=== PATIENT | female | born 1975 | race Two or more races ===

== ENCOUNTER 2025-03-13 11:38 | Inpatient (IN) | payer MEDICAID, OTHER ==
[~2025-03-13] VITALS: Ht 165.1 cm; Wt 68.0 kg
[2025-03-13] VITALS (8 sets, daily range): BP systolic 85–90; BP diastolic 53–60; TEMP 97.5–97.9; O2SAT 100
[2025-03-13] MEDS ORDERED: LABE100T5 GT (12:29)
[2025-03-13] MEDS ORDERED: DOCU100T2 GT (12:29)
[2025-03-13] MEDS ORDERED: ENAL2.5T17 GT (12:29)
[2025-03-13] MEDS ORDERED: AMIN30LI66 GT (12:29)
[2025-03-13] MEDS ORDERED: ASPI-1169 GT (12:29)
[2025-03-13] MEDS ORDERED: SENN8.6T19 GT (12:29)
[2025-03-13] MEDS ORDERED: INSU100V42 SQ ×2 (12:29)
[2025-03-13] MEDS ORDERED: BISA10SU11 RC (12:29)
[2025-03-13] MEDS ORDERED: DEXT15DR6 EACHEYE (12:29)
[2025-03-13] MEDS ORDERED: ASCO500L2 GT (12:29)
[2025-03-13] MEDS ORDERED: LEVE100S GT (12:29)
[2025-03-13] MEDS ORDERED: ATOR40TA GT (12:29)
[2025-03-13] MEDS ORDERED: ACET160L44 GT (12:29)
[2025-03-13] MEDS ORDERED: ALBU2.5V38 IH (12:29)
[2025-03-13] MEDS ORDERED: MULT-213 GT (12:29)
[2025-03-13] MEDS ORDERED: NA P133E RC (12:29)
[2025-03-13] MEDS ORDERED: CEFE2VIA3 IV (12:29)
[2025-03-13] MEDS ORDERED: ACET160S GT (12:29)
[2025-03-13] MEDS ORDERED: MAGN400O6 GT (12:29)
[2025-03-13] MEDS ORDERED: BROM2.5T19 GT (12:29)
[2025-03-13] MEDS ORDERED: OMEGA-3 FATTY ACIDS GT (12:29)
[2025-03-13] MEDS ORDERED: ONDA4TAB5 GT (12:29)
[2025-03-13] MEDS ORDERED: NUT.237L30 GT (12:29)
[2025-03-13] MEDS ORDERED: INSU100V7 SQ (12:29)
[2025-03-13] MEDS ORDERED: CHLO473M5 MM (12:29)
[2025-03-13] MEDS ORDERED: LISI-768 GT (12:29)
[2025-03-13 12:33] LABS: BASOPHILS % (AUTO) 0.2 % (0.0-2.0); EOSINOPHILS # (AUTO) 0.1 K/uL (0.0-0.7); EOSINOPHILS % (AUTO) 1.3 % (0.0-6.0); HEMATOCRIT 21 % (33-45); LYMPHOCYTES # (AUTO) 1.7 K/uL (0.8-4.8); LYMPHOCYTES % (AUTO) 15.8 % (20.0-44.0); MEAN CORPUSCULAR HEMOGLOBIN 27 PG (26.0-33.0); MEAN CORPUSCULAR HGB CONC 33 g/dl (31.0-36.0); MEAN CORPUSCULAR VOLUME 82 fL (82-100); MONOCYTES # (AUTO) 0.6 K/uL (0.1-1.30); MONOCYTES % (AUTO) 5.9 % (2.0-12.0); NEUTROPHILS # (AUTO) 8.1 K/uL (1.8-8.9); NEUTROPHILS % (AUTO) 76.8 % (43.0-81.0); PLATELET COUNT (AUTO) 411 K/uL (150-450); RED BLOOD CELL COUNT(AUTO) 2.56 MIL/uL (4.0-5.2); RED CELL DISTRIBUTION WIDTH 18.6 % (11.5-15.0); WHITE BLOOD COUNT (AUTO) 10.6 K/uL (4.3-11.0)
[2025-03-13 12:37] LABS: CALCIUM, SERUM 9.9 mg/dL (8.5-10.1); CREATININE 1.4 mg/dL (0.6-1.3); POTASSIUM 3.9 mmol/L (3.5-5.1)
[2025-03-13 12:39] LABS: HEMOGLOBIN 6.9 g/dL (11.5-14.8)
[2025-03-13 12:43] LABS: INR 1.03 (0.91-1.10); PARTIAL THROMBOPLASTIN TIME 30.6 SEC (24.3-34.3); PROTHROMBIN TIME 10.9 SECS (9.2-11.1)
[2025-03-13 12:56] LABS: BILIRUBIN,DIRECT 0.2 mg/dL (0.0-0.2); BILIRUBIN,TOTAL 0.5 mg/dL (0.2-1.0); TOTAL PROTEIN, SERUM 6.8 g/dL (6.4-8.2)
[2025-03-13] MEDS: CEFEPIME 1 GM in IV D5W 50 ML IV ONE (13:00)
[2025-03-13] MEDS: IV NS 0.9% 1,000 ML BAG IV ONE (13:00)
[2025-03-13] MEDS ORDERED: ONDANSETRON HCL/PF 4 MG/2 ML VIAL IVP PRN (13:30)
[2025-03-13] MEDS ORDERED: MORPHINE SULFATE INJ 2 MG/ML DISP.SYRIN IV PRN (13:30)
[2025-03-13] MEDS ORDERED: DEXTROSE 50%-WATER 50 ML DISP.SYRIN IV PRN (13:30)
[2025-03-13] MEDS ORDERED: Z GUARD REMEDY 4 OZ OINT TP PRN (13:30)
[2025-03-13 14:04] LABS: APPEARANCE,URINE CLEAR (CLEAR); BILIRUBIN,URINE NEGATIVE (NEGATIVE); BLOOD, URINE 1+ Ery/uL (NEGATIVE); COLOR,URINE YELLOW (YELLOW); KETONES,URINE NEGATIVE (NEGATIVE); LEUKOCYTE ESTERASE ,URINE 1+ (NEGATIVE); NITRITE, URINE NEGATIVE (NEGATIVE); PROTEIN,URINE 2+ mg/dl (NEGATIVE); UGLUCOSE NEGATIVE (NEGATIVE); UROBILINOGEN,URINE 0.2 EU/dL (0.2)
[2025-03-13 14:53] LABS: LACTIC ACID 2.4 mmol/L (0.4-2.0)
[2025-03-13] MEDS: IV NS 0.9% 1,000 ML IV SCH (16:24)
[2025-03-13] MEDS: BROMOCRIPTINE MESYLATE (2.5MG) 2.5 MG TABLET GT SCH (17:25)
[2025-03-13] MEDS: DOCUSATE SODIUM LIQ 100 MG/10 ML UDC PO SCH (17:25)
[2025-03-13] MEDS: CHLORHEXIDINE GLUCONATE 15 ML UDC MM SCH (17:25)
[2025-03-13] MEDS: INSULIN REGULAR, HUMAN 100 UNIT/ML 3 ML VIAL SQ PRN (17:45)
[2025-03-13] MEDS: BLOOD SUGAR DIAGNOSTIC 1 EACH STRIP IN SCH (17:45)
[2025-03-13 19:01] LABS: ADD URINE CULTURE YES; BACTERIA,URINE Moderate /HPF (None Seen); CALCIUM OXALATE CRYSTALS,UR Few /HPF (None Seen); SQUAMOUS EPITHELIAL CELL,UR Few /HPF (None Seen); YEAST,URINE Many /HPF (None Seen)
[2025-03-13] MEDS ORDERED: CEFEPIME 2 GM VIAL IV SCH (21:00)
[2025-03-13 21:04] LABS: ANISOCYTOSIS 1+; BAND % (MANUAL) 0 % (0.0-5.0); BASOPHILS % (MANUAL) 0 % (0.0-2.0); EOSINOPHILS % (MANUAL) 0 % (0-4); LYMPHOCYTES % (MANUAL) 15 % (16-48); MONOCYTES % (MANUAL) 5 % (0-11.0); NEUTROPHILS % (MANUAL) 80 (42-76); PLATELET ESTIMATE ADEQUATE
[2025-03-13] MEDS: GLUCERNA 1.2 1,000 ML BOTTLE NG PRN (21:04)
[2025-03-13] MEDS: LEVETIRACETAM SOL (5 ML) 100 MG/ML UDC GT SCH (21:20)
[2025-03-13] MEDS: ASPIRIN 81 MG TAB.CHEW GT SCH (21:55)
[2025-03-13] MEDS: ATORVASTATIN 40 MG TABLET GT SCH (21:56)
[2025-03-13] MEDS: INSULIN GLARGINE, 100 UNIT/ML CARTRIDGE SQ SCH (23:23)
[2025-03-14] VITALS: BP_SYST 100; BP_SYST 89; BP_DIAS 60; BP_DIAS 73; TEMP 97.5; TEMP 99; O2SAT 100
[2025-03-14] MEDS: CEFEPIME 2 GM in IV D5W 100 ML IV SCH (01:12)
[2025-03-14 04:00] VITALS: BP 130/90; TEMP 100.2; O2SAT 99
[2025-03-14] MEDS: ACETAMINOPHEN 325 MG TABLET PO PRN (04:08)
[2025-03-14 08:00] VITALS: BP 102/67; TEMP 98.4; O2SAT 100
[2025-03-14] MEDS: POLYETHYLENE GLYCOL 3350 17 GM POWD.PACK PO SCH (08:35)
[2025-03-14] MEDS: PROSOURCE / PROSTAT (PYXIS) 30 ML UDC GT SCH (08:46)
[2025-03-14] MEDS: POLYVINYL ALCOHOL 15 ML BOTTLE EACHEYE SCH (08:46)
[2025-03-14 09:02] LABS: BASOPHILS % (AUTO) 0.2 % (0.0-2.0); EOSINOPHILS # (AUTO) 0.2 K/uL (0.0-0.7); EOSINOPHILS % (AUTO) 1.1 % (0.0-6.0); HEMATOCRIT 24 % (33-45); HEMOGLOBIN 7.8 g/dL (11.5-14.8); LYMPHOCYTES # (AUTO) 1.6 K/uL (0.8-4.8); LYMPHOCYTES % (AUTO) 9.6 % (20.0-44.0); MEAN CORPUSCULAR HEMOGLOBIN 27 PG (26.0-33.0); MEAN CORPUSCULAR HGB CONC 32 g/dl (31.0-36.0); MEAN CORPUSCULAR VOLUME 85 fL (82-100); NEUTROPHILS % (AUTO) 83.1 % (43.0-81.0); PLATELET COUNT (AUTO) 383 K/uL (150-450); RED BLOOD CELL COUNT(AUTO) 2.87 MIL/uL (4.0-5.2); RED CELL DISTRIBUTION WIDTH 17.8 % (11.5-15.0); WHITE BLOOD COUNT (AUTO) 16.9 K/uL (4.3-11.0)
[2025-03-14 09:19] LABS: BILIRUBIN,TOTAL 0.3 mg/dL (0.2-1.0); CALCIUM, SERUM 9.1 mg/dL (8.5-10.1); CREATININE 1.6 mg/dL (0.6-1.3); MAGNESIUM 2.6 mg/dL (1.8-2.4); PHOSPHORUS 4.6 mg/dL (2.5-4.9); POTASSIUM 4.1 mmol/L (3.5-5.1); TOTAL PROTEIN, SERUM 6.2 g/dL (6.4-8.2)
[2025-03-14] MEDS: DAKINS QUARTER STRENGTH (0.125%) 480 ML BOTTLE TOP SCH (10:17)
[2025-03-14 12:00] VITALS: BP 90/61; TEMP 97.5; O2SAT 100
[2025-03-14] MEDS ORDERED: UREA 10% -AHA 4% CREAM 57 GM TUBE TP SCH (12:00)
[2025-03-14] MEDS: IV NS 0.9% 1,000 ML IV ONE (15:20)
[2025-03-14] MEDS: GLUCERNA 1.2 1,000 ML BOTTLE GT PRN (15:20)
[2025-03-14] MEDS ORDERED: GLUCERNA 1.2 1,000 ML BOTTLE NG PRN (15:30)
[2025-03-14 16:00] VITALS: BP 88/57; TEMP 98.2; O2SAT 100
[2025-03-14 16:02] LABS: PREGNANCY TEST URINE QUAL NEGATIVE (NEGATIVE)
[2025-03-14 16:44] LABS: CREATININE, URINE < 13.0 MG/DL (30.0-125.0); URINE SODIUM, RANDOM 47 mmol/l (40-220); URINE TOTAL PROTEIN 100.5 mg/dL (0-11.9)
[2025-03-14 20:00] VITALS: BP 107/68; TEMP 97.9; O2SAT 100
[2025-03-14 20:57] LABS: HEMOGLOBIN 7.6 g/dL (11.5-14.8)
[2025-03-15] VITALS: BP 99/62; TEMP 99; O2SAT 100
[2025-03-15 04:00] VITALS: BP 100/62; TEMP 98.2; O2SAT 100
[2025-03-15 07:16] LABS: BASOPHILS % (AUTO) 0.2 % (0.0-2.0); EOSINOPHILS # (AUTO) 0.2 K/uL (0.0-0.7); EOSINOPHILS % (AUTO) 1.2 % (0.0-6.0); HEMATOCRIT 23 % (33-45); HEMOGLOBIN 7.5 g/dL (11.5-14.8); LYMPHOCYTES # (AUTO) 1.6 K/uL (0.8-4.8); LYMPHOCYTES % (AUTO) 9.5 % (20.0-44.0); MEAN CORPUSCULAR HEMOGLOBIN 27 PG (26.0-33.0); MEAN CORPUSCULAR HGB CONC 32 g/dl (31.0-36.0); MEAN CORPUSCULAR VOLUME 85 fL (82-100); MONOCYTES % (AUTO) 5.8 % (2.0-12.0); NEUTROPHILS # (AUTO) 14.1 K/uL (1.8-8.9); NEUTROPHILS % (AUTO) 83.3 % (43.0-81.0); PLATELET COUNT (AUTO) 433 K/uL (150-450); RED BLOOD CELL COUNT(AUTO) 2.73 MIL/uL (4.0-5.2); RED CELL DISTRIBUTION WIDTH 18.3 % (11.5-15.0); WHITE BLOOD COUNT (AUTO) 16.9 K/uL (4.3-11.0)
[2025-03-15 07:46] LABS: BILIRUBIN,TOTAL 0.3 mg/dL (0.2-1.0); CALCIUM, SERUM 9.4 mg/dL (8.5-10.1); CREATININE 1.7 mg/dL (0.6-1.3); MAGNESIUM 2.7 mg/dL (1.8-2.4); PHOSPHORUS 4.5 mg/dL (2.5-4.9); POTASSIUM 4.1 mmol/L (3.5-5.1); TOTAL PROTEIN, SERUM 6.4 g/dL (6.4-8.2)
[2025-03-15 08:05] VITALS: BP 98/63; TEMP 99; O2SAT 99
[2025-03-15] MEDS: PANTOPRAZOLE 40 MG VIAL IV SCH (08:46)
[2025-03-15] MEDS: MEROPENEM 1 G in IV NS 0.9% 100 ML IV SCH (08:46)
[2025-03-15] MEDS: ARGININE/GLUTAMINE/CALCIUM BMB 1 EACH POWD.PACK GT SCH (08:47)
[2025-03-15 11:49] LABS: EOSINOPHILS % (MANUAL) 1 % (0-4); LYMPHOCYTES % (MANUAL) 21 % (16-48); MONOCYTES % (MANUAL) 3 % (0-11.0); NEUTROPHILS % (MANUAL) 75 (42-76); PLATELET ESTIMATE ADEQUATE
[2025-03-15 11:52] LABS: ANISOCYTOSIS 1+
[2025-03-15 12:05] VITALS: BP 94/59; TEMP 98.2; O2SAT 99
[2025-03-15] MEDS: GLUCERNA 1.2 1,000 ML BOTTLE GT SCH (13:50)
[2025-03-15 16:05] VITALS: BP 98/60; TEMP 97.9; O2SAT 99
[2025-03-15] MEDS: MIDODRINE HCL (5MG) 5 MG TABLET PO SCH (17:15)
[2025-03-15 20:00] VITALS: BP 110/68; TEMP 97.5; O2SAT 99
[2025-03-16] VITALS: BP 109/75; TEMP 97.9; O2SAT 99
[2025-03-16 04:00] VITALS: BP 112/76; TEMP 97.7; O2SAT 100
[2025-03-16 07:26] LABS: BASOPHILS % (AUTO) 0.3 % (0.0-2.0); EOSINOPHILS # (AUTO) 0.2 K/uL (0.0-0.7); EOSINOPHILS % (AUTO) 1.2 % (0.0-6.0); HEMATOCRIT 25 % (33-45); HEMOGLOBIN 7.8 g/dL (11.5-14.8); LYMPHOCYTES # (AUTO) 1.9 K/uL (0.8-4.8); LYMPHOCYTES % (AUTO) 10.2 % (20.0-44.0); MEAN CORPUSCULAR HEMOGLOBIN 27 PG (26.0-33.0); MEAN CORPUSCULAR HGB CONC 31 g/dl (31.0-36.0); MEAN CORPUSCULAR VOLUME 85 fL (82-100); MONOCYTES # (AUTO) 1.1 K/uL (0.1-1.30); MONOCYTES % (AUTO) 5.9 % (2.0-12.0); NEUTROPHILS # (AUTO) 15.3 K/uL (1.8-8.9); NEUTROPHILS % (AUTO) 82.4 % (43.0-81.0); PLATELET COUNT (AUTO) 465 K/uL (150-450); RED BLOOD CELL COUNT(AUTO) 2.92 MIL/uL (4.0-5.2); RED CELL DISTRIBUTION WIDTH 18.6 % (11.5-15.0); WHITE BLOOD COUNT (AUTO) 18.6 K/uL (4.3-11.0)
[2025-03-16 07:51] LABS: BILIRUBIN,TOTAL 0.2 mg/dL (0.2-1.0); CALCIUM, SERUM 9.6 mg/dL (8.5-10.1); CREATININE 1.8 mg/dL (0.6-1.3); POTASSIUM 3.7 mmol/L (3.5-5.1); TOTAL PROTEIN, SERUM 6.3 g/dL (6.4-8.2)
[2025-03-16 08:00] VITALS: BP 107/76; TEMP 98.8; O2SAT 100
[2025-03-16 08:31] LABS: ALBUMIN 0.9 g/dL (3.4-5.0)
[2025-03-16 09:44] LABS: ANISOCYTOSIS 1+; EOSINOPHILS % (MANUAL) 2 % (0-4); LYMPHOCYTES % (MANUAL) 9 % (16-48); MONOCYTES % (MANUAL) 3 % (0-11.0); NEUTROPHILS % (MANUAL) 86 (42-76); OVALOCYTES 1+; PLATELET ESTIMATE INCREASED
[2025-03-16 12:00] VITALS: BP 129/73; TEMP 97.9; O2SAT 100
[2025-03-16] MEDS: FLUCONAZOLE IN NS 100 MG in PREMIX 1 EA IV SCH (12:07)
[2025-03-16 16:00] VITALS: BP 113/80; TEMP 97.7; O2SAT 100
[2025-03-16 20:00] VITALS: BP 124/73; TEMP 98.8; O2SAT 100
[2025-03-16 21:50] LABS: APPEARANCE,URINE CLEAR (CLEAR); BILIRUBIN,URINE NEGATIVE (NEGATIVE); BLOOD, URINE TRACE-INTA Ery/uL (NEGATIVE); COLOR,URINE YELLOW (YELLOW); KETONES,URINE NEGATIVE (NEGATIVE); LEUKOCYTE ESTERASE ,URINE NEGATIVE (NEGATIVE); NITRITE, URINE NEGATIVE (NEGATIVE); PROTEIN,URINE 2+ mg/dl (NEGATIVE); UGLUCOSE NEGATIVE (NEGATIVE); UROBILINOGEN,URINE 0.2 EU/dL (0.2)
[2025-03-16 22:24] LABS: ADD URINE CULTURE YES; BACTERIA,URINE Rare /HPF (None Seen); MUCUS,URINE Few /LPF (None Seen); YEAST,URINE Many /HPF (None Seen)
[2025-03-16 22:52] LABS: EOSINOPHIL,URINE None Seen
[2025-03-17] VITALS: BP 127/74; TEMP 98.8; O2SAT 100
[2025-03-17 04:00] VITALS: BP 145/88; TEMP 98.4; O2SAT 99
[2025-03-17 07:06] LABS: BASOPHILS # (AUTO) 0.1 K/uL (0.0-0.2); BASOPHILS % (AUTO) 0.3 % (0.0-2.0); EOSINOPHILS # (AUTO) 0.2 K/uL (0.0-0.7); EOSINOPHILS % (AUTO) 1.3 % (0.0-6.0); HEMATOCRIT 25 % (33-45); HEMOGLOBIN 7.9 g/dL (11.5-14.8); LYMPHOCYTES # (AUTO) 2.4 K/uL (0.8-4.8); LYMPHOCYTES % (AUTO) 14.4 % (20.0-44.0); MEAN CORPUSCULAR HEMOGLOBIN 27 PG (26.0-33.0); MEAN CORPUSCULAR HGB CONC 32 g/dl (31.0-36.0); MEAN CORPUSCULAR VOLUME 85 fL (82-100); MONOCYTES # (AUTO) 1.2 K/uL (0.1-1.30); MONOCYTES % (AUTO) 7.2 % (2.0-12.0); NEUTROPHILS # (AUTO) 12.8 K/uL (1.8-8.9); NEUTROPHILS % (AUTO) 76.8 % (43.0-81.0); PLATELET COUNT (AUTO) 579 K/uL (150-450); RED BLOOD CELL COUNT(AUTO) 2.92 MIL/uL (4.0-5.2); RED CELL DISTRIBUTION WIDTH 18.8 % (11.5-15.0); WHITE BLOOD COUNT (AUTO) 16.7 K/uL (4.3-11.0)
[2025-03-17 07:22] LABS: BILIRUBIN,TOTAL 0.2 mg/dL (0.2-1.0); CALCIUM, SERUM 9.7 mg/dL (8.5-10.1); CREATININE 1.7 mg/dL (0.6-1.3); POTASSIUM 3.7 mmol/L (3.5-5.1); TOTAL PROTEIN, SERUM 6.6 g/dL (6.4-8.2)
[2025-03-17 08:00] VITALS: BP 106/62; TEMP 99.1; O2SAT 99
[2025-03-17 08:10] LABS: PTH, INTACT 10 pg/mL (15-65)
[2025-03-17] MEDS: PANTOPRAZOLE 40 MG/PACK PACK GT SCH (08:44)
[2025-03-17] MEDS: IV 1/2NS 1000 ML 1,000 ML IV ONE ×2 (10:49→11:12)
[2025-03-17 12:00] VITALS: BP 109/58; TEMP 99; O2SAT 99
[2025-03-17 13:07] LABS: EOSINOPHILS % (MANUAL) 2 % (0-4); LYMPHOCYTES % (MANUAL) 13 % (16-48); MONOCYTES % (MANUAL) 8 % (0-11.0); NEUTROPHILS % (MANUAL) 77 (42-76); PLATELET ESTIMATE INCREASED
[2025-03-17 16:00] VITALS: BP 123/66; TEMP 99.9; O2SAT 99
[2025-03-17 20:00] VITALS: BP 117/70; TEMP 98.2; O2SAT 100
[2025-03-18] VITALS: BP 131/76; TEMP 98; O2SAT 100
[2025-03-18 04:00] VITALS: BP 116/78; TEMP 97.9; O2SAT 100
[2025-03-18 06:42] LABS: OCCULT BLOOD STOOL NEGATIVE (NEGATIVE)
[2025-03-18 08:00] VITALS: BP 132/77; TEMP 97.9; O2SAT 100
[2025-03-18 08:19] LABS: BASOPHILS % (AUTO) 0.3 % (0.0-2.0); EOSINOPHILS # (AUTO) 0.2 K/uL (0.0-0.7); EOSINOPHILS % (AUTO) 1.2 % (0.0-6.0); HEMATOCRIT 26 % (33-45); HEMOGLOBIN 8.1 g/dL (11.5-14.8); LYMPHOCYTES # (AUTO) 2.5 K/uL (0.8-4.8); LYMPHOCYTES % (AUTO) 17.7 % (20.0-44.0); MEAN CORPUSCULAR HEMOGLOBIN 27 PG (26.0-33.0); MEAN CORPUSCULAR HGB CONC 31 g/dl (31.0-36.0); MEAN CORPUSCULAR VOLUME 85 fL (82-100); MONOCYTES % (AUTO) 7.4 % (2.0-12.0); NEUTROPHILS # (AUTO) 10.3 K/uL (1.8-8.9); NEUTROPHILS % (AUTO) 73.4 % (43.0-81.0); PLATELET COUNT (AUTO) 595 K/uL (150-450); RED BLOOD CELL COUNT(AUTO) 3.01 MIL/uL (4.0-5.2); RED CELL DISTRIBUTION WIDTH 18.7 % (11.5-15.0); WHITE BLOOD COUNT (AUTO) 14.1 K/uL (4.3-11.0)
[2025-03-18 08:31] LABS: BILIRUBIN,TOTAL 0.2 mg/dL (0.2-1.0); CALCIUM, SERUM 9.6 mg/dL (8.5-10.1); CREATININE 1.7 mg/dL (0.6-1.3); POTASSIUM 3.3 mmol/L (3.5-5.1); TOTAL PROTEIN, SERUM 6.6 g/dL (6.4-8.2)
[2025-03-18] MEDS ORDERED: POTASSIUM CHLORIDE 20 MEQ POWDER PACKET GT SCH (11:00)
[2025-03-18] MEDS ORDERED: POTASSIUM CL. PREMIX PERIPHER. 50 ML IV SCH (11:30)
[2025-03-18 12:00] VITALS: BP 133/78; TEMP 98.8; O2SAT 100
[2025-03-18] MEDS: POTASSIUM CHLORIDE 20 MEQ POWDER PACKET GT ONE (12:59)
[2025-03-18 15:35] LABS: EOSINOPHILS % (MANUAL) 2 % (0-4); LYMPHOCYTES % (MANUAL) 28 % (16-48); MONOCYTES % (MANUAL) 5 % (0-11.0); MYELOCYTES % 2 % (0-0); NEUTROPHILS % (MANUAL) 63 (42-76); PLATELET ESTIMATE INCREASED
[2025-03-18 15:36] LABS: ANISOCYTOSIS 1+
[2025-03-18 16:00] VITALS: BP 102/65; TEMP 98; O2SAT 98
[2025-03-18 20:00] VITALS: BP 119/73; TEMP 99; O2SAT 100
[2025-03-19] VITALS: BP 106/62; TEMP 98.6; O2SAT 100
[2025-03-19 04:00] VITALS: BP 126/74; TEMP 98.2; O2SAT 98
[2025-03-19 08:00] VITALS: BP 135/79; TEMP 98.4; O2SAT 100
[2025-03-19 08:13] LABS: BILIRUBIN,TOTAL 0.2 mg/dL (0.2-1.0); CALCIUM, SERUM 9.4 mg/dL (8.5-10.1); CREATININE 1.6 mg/dL (0.6-1.3); MAGNESIUM 2.4 mg/dL (1.8-2.4); PHOSPHORUS 4.4 mg/dL (2.5-4.9); POTASSIUM 4.5 mmol/L (3.5-5.1); TOTAL PROTEIN, SERUM 6.8 g/dL (6.4-8.2)
[2025-03-19 08:16] LABS: BASOPHILS # (AUTO) 0.1 K/uL (0.0-0.2); BASOPHILS % (AUTO) 0.4 % (0.0-2.0); EOSINOPHILS # (AUTO) 0.1 K/uL (0.0-0.7); EOSINOPHILS % (AUTO) 0.9 % (0.0-6.0); HEMATOCRIT 25 % (33-45); HEMOGLOBIN 8.1 g/dL (11.5-14.8); LYMPHOCYTES # (AUTO) 2.3 K/uL (0.8-4.8); LYMPHOCYTES % (AUTO) 18.1 % (20.0-44.0); MEAN CORPUSCULAR HEMOGLOBIN 31 PG (26.0-33.0); MEAN CORPUSCULAR HGB CONC 32 g/dl (31.0-36.0); MEAN CORPUSCULAR VOLUME 96 fL (82-100); MONOCYTES # (AUTO) 0.9 K/uL (0.1-1.30); MONOCYTES % (AUTO) 6.9 % (2.0-12.0); NEUTROPHILS # (AUTO) 9.4 K/uL (1.8-8.9); NEUTROPHILS % (AUTO) 73.7 % (43.0-81.0); PLATELET COUNT (AUTO) 624 K/uL (150-450); RED BLOOD CELL COUNT(AUTO) 2.63 MIL/uL (4.0-5.2); RED CELL DISTRIBUTION WIDTH 19.5 % (11.5-15.0); WHITE BLOOD COUNT (AUTO) 12.8 K/uL (4.3-11.0)
[2025-03-19 08:57] LABS: ALBUMIN 1.2 g/dL (3.4-5.0)
[2025-03-19 12:00] VITALS: BP 122/73; TEMP 101.1; O2SAT 100
[2025-03-19 16:23] VITALS: BP 129/80; TEMP 98.8; O2SAT 100
[2025-03-19 20:00] VITALS: BP 137/80; TEMP 99.5; O2SAT 100
[2025-03-20] VITALS: BP 141/78; TEMP 98.5; O2SAT 100
[2025-03-20 04:00] VITALS: BP 140/75; TEMP 98.8; O2SAT 99
[2025-03-20 08:00] VITALS: BP 139/80; TEMP 98.3; O2SAT 99
[2025-03-20 10:10] LABS: BASOPHILS # (AUTO) 0.1 K/uL (0.0-0.2); BASOPHILS % (AUTO) 0.9 % (0.0-2.0); EOSINOPHILS # (AUTO) 0.1 K/uL (0.0-0.7); EOSINOPHILS % (AUTO) 0.7 % (0.0-6.0); HEMATOCRIT 26 % (33-45); HEMOGLOBIN 7.9 g/dL (11.5-14.8); LYMPHOCYTES # (AUTO) 3.2 K/uL (0.8-4.8); LYMPHOCYTES % (AUTO) 22.8 % (20.0-44.0); MEAN CORPUSCULAR HEMOGLOBIN 27 PG (26.0-33.0); MEAN CORPUSCULAR HGB CONC 31 g/dl (31.0-36.0); MEAN CORPUSCULAR VOLUME 86 fL (82-100); MONOCYTES % (AUTO) 7.3 % (2.0-12.0); NEUTROPHILS # (AUTO) 9.5 K/uL (1.8-8.9); NEUTROPHILS % (AUTO) 68.3 % (43.0-81.0); PLATELET COUNT (AUTO) 695 K/uL (150-450); RED BLOOD CELL COUNT(AUTO) 2.98 MIL/uL (4.0-5.2); WHITE BLOOD COUNT (AUTO) 13.9 K/uL (4.3-11.0)
[2025-03-20 10:36] LABS: BILIRUBIN,TOTAL 0.2 mg/dL (0.2-1.0); CALCIUM, SERUM 9.2 mg/dL (8.5-10.1); CREATININE 1.3 mg/dL (0.6-1.3); MAGNESIUM 2.2 mg/dL (1.8-2.4); PHOSPHORUS 4.2 mg/dL (2.5-4.9); POTASSIUM 3.7 mmol/L (3.5-5.1); TOTAL PROTEIN, SERUM 7.1 g/dL (6.4-8.2)
[2025-03-20] MEDS ORDERED: MIDO5TAB4 PO (10:55)
[2025-03-20] MEDS ORDERED: ERTA1VIA4 IJ (10:55)
[2025-03-20 11:14] LABS: ALBUMIN 1.2 g/dL (3.4-5.0)
[2025-03-20 12:00] VITALS: BP 141/84; TEMP 98.2; O2SAT 99
[2025-03-20 13:00] VITALS: BP 141/84
[2025-03-20] MEDS: IV D5W 1,000 ML IV ONE (13:06)
== END 2025-03-20 14:48 | DRG 710 ==
LOC: ER 11:44 → TELE-TD 14:42 → TELE1 03-14 13:30
PROVIDERS: ADMIT Internal Medicine; ATTEND Student in an Organized Health Care Education/Training Program
PROC: 5A1955Z Respiratory Ventilation, Greater than 96 Consecutive Hours (ICD-10-PCS; principal; 2025-03-13)
PROC: 30233N1 Transfusion of Nonautologous Red Blood Cells into Peripheral Vein, Percutaneous Approach (ICD-10-PCS; 2025-03-13)
PROC: 0KBN0ZZ Excision of Right Hip Muscle, Open Approach (ICD-10-PCS; 2025-03-19)
PROC: 0KBP0ZZ Excision of Left Hip Muscle, Open Approach (ICD-10-PCS; 2025-03-19)
DX: A41.51 Sepsis due to Escherichia coli [E. coli] (principal); N17.0 Acute kidney failure with tubular necrosis; G93.49 Other encephalopathy; L89.154 Pressure ulcer of sacral region, stage 4; E43 Unspecified severe protein-calorie malnutrition; B49 Unspecified mycosis; J96.10 Chronic respiratory failure, unspecified whether with hypoxia or hypercapnia; E87.0 Hyperosmolality and hypernatremia; L89.896 Pressure-induced deep tissue damage of other site; A41.59 Other Gram-negative sepsis; Z93.0 Tracheostomy status; Z99.11 Dependence on respirator [ventilator] status; E87.20 Acidosis, unspecified; D63.8 Anemia in other chronic diseases classified elsewhere; D64.9 Anemia, unspecified; E11.22 Type 2 diabetes mellitus with diabetic chronic kidney disease; B96.4 Proteus (mirabilis) (morganii) as the cause of diseases classified elsewhere; R13.10 Dysphagia, unspecified; Z93.1 Gastrostomy status; N39.0 Urinary tract infection, site not specified; N18.9 Chronic kidney disease, unspecified; I12.9 Hypertensive chronic kidney disease with stage 1 through stage 4 chronic kidney disease, or unspecified chronic kidney disease; Z79.4 Long term (current) use of insulin; Z79.82 Long term (current) use of aspirin; Z79.899 Other long term (current) drug therapy; Z79.51 Long term (current) use of inhaled steroids; E11.40 Type 2 diabetes mellitus with diabetic neuropathy, unspecified; G40.909 Epilepsy, unspecified, not intractable, without status epilepticus; L84 Corns and callosities; M89.8X9 Other specified disorders of bone, unspecified site; N31.9 Neuromuscular dysfunction of bladder, unspecified; Z87.820 Personal history of traumatic brain injury; E87.1 Hypo-osmolality and hyponatremia; Z98.890 Other specified postprocedural states; R74.8 Abnormal levels of other serum enzymes; Z16.12 Extended spectrum beta lactamase (ESBL) resistance
CPT/HCPCS: 31720; 36415; 71045-TC; 76770-TC; 80048-TC; 80053-TC; 80076-TC; 81001; 82272-TC; 82550-TC; 82570-TC; 82962-TC; 83605-TC; 83735-TC; 83970; 84100-TC; 84155; 84165; 84300-TC; 84703-TC; 85025-TC; 85027-TC; 85730-TC; 86850-TC; 87040-TC; 87086-TC; 87186-TC; 94002-TC; 94003-TC; 94760-TC; 94762-TC; 94799-TC; 99082-TC; A4216; A4223; A4623; A4629; A6403; G0378; J0692; J1450; J1815; J1953; J2185; J2470; J3490; J7030; J7040; J7050; J7060; J7070; P9016

== ENCOUNTER 2025-04-15 14:00 | Inpatient (IN) | payer OTHER ==
[~2025-04-15] VITALS: Ht 182.9 cm; Wt 52.2 kg
[~2025-04-15 14:00] MED LIST: ACET160L44 GT; ACET160S GT; ALBU2.5V38 IH; AMIN30LI66 GT; ASCO500L2 GT; ASPI-1169 GT; ATOR40TA GT; BISA10SU11 RC; BROM2.5T19 GT; CHLO473M5 MM; DEXT15DR6 EACHEYE; DOCU100T2 GT; ERTA1VIA4 IJ; INSU100V42 SQ; INSU100V7 SQ; LABE100T5 GT; LEVE100S GT; MAGN400O6 GT; MIDO5TAB4 PO; MULT-213 GT; NA P133E RC; NUT.237L30 GT; OMEGA-3 FATTY ACIDS GT; ONDA4TAB5 GT; SENN8.6T19 GT
[2025-04-15] MEDS: VANCOMYCIN 1 GM in IV D5W 250 ML IV ONE (15:00)
[2025-04-15 15:01] LABS: BASOPHILS # (AUTO) 0.1 K/uL (0.0-0.2); BASOPHILS % (AUTO) 0.2 % (0.0-2.0); EOSINOPHILS # (AUTO) 0.1 K/uL (0.0-0.7); EOSINOPHILS % (AUTO) 0.6 % (0.0-6.0); HEMATOCRIT 24 % (33-45); HEMOGLOBIN 7.4 g/dL (11.5-14.8); LYMPHOCYTES % (AUTO) 12.7 % (20.0-44.0); MEAN CORPUSCULAR HEMOGLOBIN 25 PG (26.0-33.0); MEAN CORPUSCULAR HGB CONC 31 g/dl (31.0-36.0); MEAN CORPUSCULAR VOLUME 83 fL (82-100); MONOCYTES # (AUTO) 1.1 K/uL (0.1-1.30); MONOCYTES % (AUTO) 4.6 % (2.0-12.0); NEUTROPHILS # (AUTO) 19.3 K/uL (1.8-8.9); NEUTROPHILS % (AUTO) 81.9 % (43.0-81.0); PLATELET COUNT (AUTO) 599 K/uL (150-450); RED BLOOD CELL COUNT(AUTO) 2.94 MIL/uL (4.0-5.2); RED CELL DISTRIBUTION WIDTH 17.4 % (11.5-15.0); WHITE BLOOD COUNT (AUTO) 23.5 K/uL (4.3-11.0)
[2025-04-15 15:10] LABS: BILIRUBIN,URINE Negative (NEGATIVE); BLOOD, URINE Negative Ery/uL (NEGATIVE); COLOR,URINE YELLOW (YELLOW); KETONES,URINE Negative (NEGATIVE); LEUKOCYTE ESTERASE ,URINE Small (NEGATIVE); PROTEIN,URINE 100 mg/dl (NEGATIVE); UGLUCOSE Negative (NEGATIVE); UROBILINOGEN,URINE 0.2 EU/dL (0.2)
[2025-04-15 15:11] LABS: APPEARANCE,URINE CLOUDY (CLEAR); NITRITE, URINE NEGATIVE (NEGATIVE)
[2025-04-15 15:12] LABS: ADD URINE CULTURE YES; BACTERIA,URINE 1+ /HPF (None Seen); URINE AMORPHOUS PHOSPHATES Moderate /HPF (None Seen)
[2025-04-15 15:16] LABS: INR 1.06 (0.91-1.10); PARTIAL THROMBOPLASTIN TIME 31.5 SEC (24.3-34.3); PROTHROMBIN TIME 10.9 SECS (9.2-11.1)
[2025-04-15 15:23] LABS: CALCIUM, SERUM 10.4 mg/dL (8.5-10.1); CARBON DIOXIDE 31 mmol/L (21-32); CHLORIDE 98 mmol/L (98-107); GLUCOSE 181 mg/dL (74-106); POTASSIUM 4.2 mmol/L (3.5-5.1); SODIUM SERUM 135 mmol/L (136-145); UREA NITROGEN, BLOOD 22 mg/dL (7-18)
[2025-04-15 15:24] LABS: ALANINE AMINOTRANSFERASE 15 U/L (12-78); ALBUMIN 1.7 g/dL (3.4-5.0); ALKALINE PHOSPHATASE 212 U/L (46-116); ASPARTATE AMINOTRANSFERASE 15 U/L (15-37); BILIRUBIN,DIRECT 0.1 mg/dL (0.0-0.2); BILIRUBIN,TOTAL 0.3 mg/dL (0.2-1.0); CREATININE 0.6 mg/dL (0.6-1.3); LACTIC ACID 1.7 mmol/L (0.4-2.0); TOTAL PROTEIN, SERUM 8.6 g/dL (6.4-8.2)
[2025-04-15] MEDS: IV NS 0.9% 1,000 ML BAG IV ONE (15:28)
[2025-04-15] MEDS ORDERED: ALBU2.5V11 IH (15:42)
[2025-04-15] MEDS ORDERED: MIDO5TAB4 GT (15:42)
[2025-04-15] MEDS ORDERED: CRAN3875 GT (15:42)
[2025-04-15] MEDS ORDERED: ZINC50TA65 GT (15:42)
[2025-04-15] MEDS ORDERED: TRAM50TA2 GT (15:42)
[2025-04-15] MEDS ORDERED: OMEG1600 GT (15:42)
[2025-04-15] MEDS ORDERED: ZINC220C6 (15:42)
[2025-04-15] MEDS: PIPERACILLIN /TAZOBACTAM 3.375 G in IV D5W 50 ML IV ONE (15:54)
[2025-04-15] MEDS: MORPHINE SULFATE INJ 2 MG/ML DISP.SYRIN IV PRN (17:56)
[2025-04-15] MEDS ORDERED: MORPHINE SULFATE INJ 2 MG/ML DISP.SYRIN IV ONE (18:00)
[2025-04-15] MEDS ORDERED: Z GUARD REMEDY 4 OZ OINT TP PRN (19:00)
[2025-04-15] MEDS ORDERED: ONDANSETRON HCL/PF 4 MG/2 ML VIAL IVP PRN (19:00)
[2025-04-15] MEDS ORDERED: DEXTROSE 50%-WATER 50 ML DISP.SYRIN IV PRN (19:00)
[2025-04-15] MEDS: ALBUTEROL FS 2.5 MG/3 ML VIAL.NEB IH SCH (19:30)
[2025-04-15 20:00] VITALS: BP 91/58; TEMP 100.6; O2SAT 88
[2025-04-15] MEDS: IV NS 0.9% 1,000 ML IV PRN (21:16)
[2025-04-15] MEDS: ENOXAPARIN SODIUM 40 MG/0.4 ML DISP.SYRIN SQ SCH (21:41)
[2025-04-15] MEDS: MIDODRINE HCL (5MG) 5 MG TABLET GT SCH (21:42)
[2025-04-15] MEDS: LEVETIRACETAM SOL (5 ML) 100 MG/ML UDC GT SCH (21:42)
[2025-04-15] MEDS: ATORVASTATIN 40 MG TABLET GT SCH (22:21)
[2025-04-15] MEDS: ASPIRIN 81 MG TAB.CHEW GT SCH (22:22)
[2025-04-15] MEDS: MEROPENEM 500MG/NS 50 ML PB IV ONE (22:34)
[2025-04-15] MEDS: MEROPENEM 1 G in IV NS 0.9% 100 ML IV SCH (22:42)
[2025-04-15] MEDS: BLOOD SUGAR DIAGNOSTIC 1 EACH STRIP IN SCH (23:05)
[2025-04-15] MEDS: INSULIN REGULAR, HUMAN 100 UNIT/ML 3 ML VIAL SQ PRN (23:12)
[2025-04-15] MEDS: INSULIN GLARGINE, 100 UNIT/ML CARTRIDGE SQ SCH (23:42)
[2025-04-16] VITALS (11 sets, daily range): BP systolic 95–120; BP diastolic 55–73; TEMP 97.5–100.6; O2SAT 94–99
[2025-04-16] MEDS: VANCOMYCIN 750 MG in IV D5W 250 ML IV SCH (00:08)
[2025-04-16] MEDS: ACETAMINOPHEN 650 MG/20.3 ML UDC GT PRN (00:35)
[2025-04-16] MEDS ORDERED: MEROPENEM 1 G VIAL IV ONE (04:50)
[2025-04-16 07:08] LABS: CALCIUM, SERUM 9.5 mg/dL (8.5-10.1); CREATININE 0.5 mg/dL (0.6-1.3); PHOSPHORUS 3.5 mg/dL (2.5-4.9); POTASSIUM 4.3 mmol/L (3.5-5.1)
[2025-04-16 07:28] LABS: THYROID STIMULATING HORMONE 2.23 uIU/mL (0.358-3.74)
[2025-04-16] MEDS: BROMOCRIPTINE MESYLATE (2.5MG) 2.5 MG TABLET GT SCH (08:46)
[2025-04-16] MEDS: LABETALOL HCL (100MG) 100 MG TABLET GT SCH (08:47)
[2025-04-16 11:09] LABS: BASOPHILS % (AUTO) 0.2 % (0.0-2.0); EOSINOPHILS # (AUTO) 0.3 K/uL (0.0-0.7); EOSINOPHILS % (AUTO) 1.3 % (0.0-6.0); HEMATOCRIT 22 % (33-45); LYMPHOCYTES # (AUTO) 2.3 K/uL (0.8-4.8); LYMPHOCYTES % (AUTO) 11.8 % (20.0-44.0); MEAN CORPUSCULAR HEMOGLOBIN 26 PG (26.0-33.0); MEAN CORPUSCULAR HGB CONC 31 g/dl (31.0-36.0); MEAN CORPUSCULAR VOLUME 82 fL (82-100); MONOCYTES # (AUTO) 1.1 K/uL (0.1-1.30); MONOCYTES % (AUTO) 5.5 % (2.0-12.0); NEUTROPHILS % (AUTO) 81.2 % (43.0-81.0); PLATELET COUNT (AUTO) 633 K/uL (150-450); RED BLOOD CELL COUNT(AUTO) 2.64 MIL/uL (4.0-5.2); RED CELL DISTRIBUTION WIDTH 17.3 % (11.5-15.0); WHITE BLOOD COUNT (AUTO) 19.7 K/uL (4.3-11.0)
[2025-04-16 11:23] LABS: HEMOGLOBIN 6.7 g/dL (11.5-14.8)
[2025-04-16] MEDS: GLUCERNA 1.2 1,000 ML BOTTLE NG PRN (11:59)
[2025-04-16] MEDS: DAKINS QUARTER STRENGTH (0.125%) 480 ML BOTTLE TOP SCH (11:59)
[2025-04-16] MEDS: ARGININE/GLUTAMINE/CALCIUM BMB 1 EACH POWD.PACK GT SCH (11:59)
[2025-04-16] MEDS: PROSOURCE / PROSTAT (PYXIS) 30 ML UDC GT SCH (12:00)
[2025-04-16 16:46] LABS: LYMPHOCYTES % (MANUAL) 10 % (16-48); MONOCYTES % (MANUAL) 4 % (0-11.0); NEUTROPHILS % (MANUAL) 84 (42-76)
[2025-04-16 16:47] LABS: ANISOCYTOSIS 1+; EOSINOPHILS % (MANUAL) 2 % (0-4); PLATELET ESTIMATE INCREASED
[2025-04-16] MEDS: UREA 10% -AHA 4% CREAM 57 GM TUBE TP ONE (19:38)
[2025-04-16 23:39] LABS: PREGNANCY TEST URINE QUAL NEGATIVE (NEGATIVE)
[2025-04-17] VITALS (8 sets, daily range): BP systolic 105–140; BP diastolic 55–78; TEMP 98–102; O2SAT 98–100
[2025-04-17 06:46] LABS: BASOPHILS # (AUTO) 0.1 K/uL (0.0-0.2); BASOPHILS % (AUTO) 0.3 % (0.0-2.0); EOSINOPHILS # (AUTO) 0.4 K/uL (0.0-0.7); EOSINOPHILS % (AUTO) 1.9 % (0.0-6.0); HEMATOCRIT 26 % (33-45); LYMPHOCYTES # (AUTO) 2.6 K/uL (0.8-4.8); LYMPHOCYTES % (AUTO) 14.1 % (20.0-44.0); MEAN CORPUSCULAR HEMOGLOBIN 25 PG (26.0-33.0); MEAN CORPUSCULAR HGB CONC 31 g/dl (31.0-36.0); MEAN CORPUSCULAR VOLUME 83 fL (82-100); MONOCYTES % (AUTO) 5.2 % (2.0-12.0); NEUTROPHILS # (AUTO) 14.6 K/uL (1.8-8.9); NEUTROPHILS % (AUTO) 78.5 % (43.0-81.0); PLATELET COUNT (AUTO) 680 K/uL (150-450); RED BLOOD CELL COUNT(AUTO) 3.16 MIL/uL (4.0-5.2); WHITE BLOOD COUNT (AUTO) 18.6 K/uL (4.3-11.0)
[2025-04-17 07:06] LABS: ALBUMIN 1.5 g/dL (3.4-5.0); BILIRUBIN,TOTAL 0.2 mg/dL (0.2-1.0); CALCIUM, SERUM 9.8 mg/dL (8.5-10.1); CREATININE 0.4 mg/dL (0.6-1.3); MAGNESIUM 1.9 mg/dL (1.8-2.4); PHOSPHORUS 3.1 mg/dL (2.5-4.9); POTASSIUM 3.8 mmol/L (3.5-5.1); TOTAL PROTEIN, SERUM 7.6 g/dL (6.4-8.2)
[2025-04-17] MEDS: VANCOMYCIN 750 MG in IV D5W 250 ML IV SCH (09:09)
[2025-04-18] VITALS: BP 130/79; TEMP 98.3; O2SAT 98
[2025-04-18 04:00] VITALS: BP 130/83; TEMP 100.4; O2SAT 98
[2025-04-18 06:45] LABS: CALCIUM, SERUM 8.9 mg/dL (8.5-10.1); CREATININE 0.5 mg/dL (0.6-1.3); POTASSIUM 3.4 mmol/L (3.5-5.1)
[2025-04-18 07:03] LABS: BASOPHILS % (AUTO) 0.2 % (0.0-2.0); EOSINOPHILS # (AUTO) 0.2 K/uL (0.0-0.7); EOSINOPHILS % (AUTO) 1.1 % (0.0-6.0); HEMATOCRIT 23 % (33-45); HEMOGLOBIN 7.1 g/dL (11.5-14.8); LYMPHOCYTES # (AUTO) 2.2 K/uL (0.8-4.8); LYMPHOCYTES % (AUTO) 12.9 % (20.0-44.0); MEAN CORPUSCULAR HEMOGLOBIN 25 PG (26.0-33.0); MEAN CORPUSCULAR HGB CONC 31 g/dl (31.0-36.0); MEAN CORPUSCULAR VOLUME 81 fL (82-100); MONOCYTES # (AUTO) 0.9 K/uL (0.1-1.30); MONOCYTES % (AUTO) 5.3 % (2.0-12.0); NEUTROPHILS # (AUTO) 13.7 K/uL (1.8-8.9); NEUTROPHILS % (AUTO) 80.5 % (43.0-81.0); PLATELET COUNT (AUTO) 638 K/uL (150-450); RED BLOOD CELL COUNT(AUTO) 2.82 MIL/uL (4.0-5.2); RED CELL DISTRIBUTION WIDTH 17.4 % (11.5-15.0)
[2025-04-18 08:00] VITALS: BP 105/59; TEMP 98.4; O2SAT 97
[2025-04-18 08:07] LABS: PTH, INTACT 9 pg/mL (15-65)
[2025-04-18] MEDS ORDERED: CT SWABBABLE VALVE TRANS SET 1 EA INFUS.SET MC ONE (10:36)
[2025-04-18] MEDS ORDERED: IV NS 0.9% 250 ML IV ONE (10:36)
[2025-04-18] MEDS ORDERED: IOHEXOL-300 100 ML VIAL IV ONE (10:36)
[2025-04-18 12:00] VITALS: BP 140/77; TEMP 99.9; O2SAT 98
[2025-04-18] MEDS: POTASSIUM CHLORIDE 20 MEQ POWDER PACKET GT ONE (12:31)
[2025-04-18 13:12] LABS: *SPE A/G RATIO 0.4 (0.7-1.7); *SPE ALBUMIN 1.8 g/dL (2.9-4.4); *SPE ALPHA-1-GLOBULIN 0.6 g/dL (0.0-0.4); *SPE ALPHA-2-GLOBULIN 1.3 g/dL (0.4-1.0); *SPE BETA GLOBULIN 1.3 g/dL (0.7-1.3); *SPE GLOBULIN, TOTAL 4.6 g/dL (2.2-3.9); *SPE M-SPIKE Not Observed g/dL (Not Observed); *SPE PROTEIN TOTAL 6.4 g/dL (6.0-8.5); *SPEGAMMA GLOBULIN 1.4 g/dL (0.4-1.8)
[2025-04-18 16:00] VITALS: BP 116/92; TEMP 101.1; O2SAT 96
[2025-04-18 20:00] VITALS: BP 102/68; TEMP 98.4; O2SAT 98
[2025-04-19] VITALS: BP 128/76; TEMP 98.4; O2SAT 100
[2025-04-19 04:00] VITALS: BP 116/68; TEMP 99.1; O2SAT 99
[2025-04-19 07:10] LABS: BASOPHILS # (AUTO) 0.1 K/uL (0.0-0.2); BASOPHILS % (AUTO) 0.5 % (0.0-2.0); EOSINOPHILS # (AUTO) 0.4 K/uL (0.0-0.7); EOSINOPHILS % (AUTO) 2.6 % (0.0-6.0); HEMATOCRIT 25 % (33-45); HEMOGLOBIN 7.7 g/dL (11.5-14.8); LYMPHOCYTES # (AUTO) 2.2 K/uL (0.8-4.8); LYMPHOCYTES % (AUTO) 14.4 % (20.0-44.0); MEAN CORPUSCULAR HEMOGLOBIN 26 PG (26.0-33.0); MEAN CORPUSCULAR HGB CONC 31 g/dl (31.0-36.0); MEAN CORPUSCULAR VOLUME 83 fL (82-100); MONOCYTES # (AUTO) 0.8 K/uL (0.1-1.30); MONOCYTES % (AUTO) 5.4 % (2.0-12.0); NEUTROPHILS # (AUTO) 11.6 K/uL (1.8-8.9); NEUTROPHILS % (AUTO) 77.1 % (43.0-81.0); PLATELET COUNT (AUTO) 738 K/uL (150-450); RED BLOOD CELL COUNT(AUTO) 2.98 MIL/uL (4.0-5.2); RED CELL DISTRIBUTION WIDTH 17.6 % (11.5-15.0); WHITE BLOOD COUNT (AUTO) 15.1 K/uL (4.3-11.0)
[2025-04-19 07:34] LABS: CALCIUM, SERUM 9.5 mg/dL (8.5-10.1); CREATININE 0.4 mg/dL (0.6-1.3); POTASSIUM 3.5 mmol/L (3.5-5.1)
[2025-04-19 08:00] VITALS: BP 133/77; TEMP 99; O2SAT 97
[2025-04-19 12:00] VITALS: BP 112/70; TEMP 98.6; O2SAT 98
[2025-04-19 16:00] VITALS: BP 119/68; TEMP 99.1; O2SAT 97
[2025-04-19 20:00] VITALS: BP 125/74; TEMP 101.7; O2SAT 97
[2025-04-20] VITALS: BP 114/72; TEMP 97.9; O2SAT 96
[2025-04-20 04:00] VITALS: BP 113/54; TEMP 98.6; O2SAT 96
[2025-04-20 07:56] LABS: CALCIUM, SERUM 9.3 mg/dL (8.5-10.1); CREATININE 0.5 mg/dL (0.6-1.3); POTASSIUM 3.9 mmol/L (3.5-5.1)
[2025-04-20 08:00] VITALS: BP 130/78; TEMP 98.6; O2SAT 99
[2025-04-20 08:36] LABS: BASOPHILS # (AUTO) 0.1 K/uL (0.0-0.2); BASOPHILS % (AUTO) 0.4 % (0.0-2.0); EOSINOPHILS # (AUTO) 0.4 K/uL (0.0-0.7); EOSINOPHILS % (AUTO) 2.8 % (0.0-6.0); HEMATOCRIT 25 % (33-45); HEMOGLOBIN 7.9 g/dL (11.5-14.8); LYMPHOCYTES # (AUTO) 2.4 K/uL (0.8-4.8); LYMPHOCYTES % (AUTO) 16.6 % (20.0-44.0); MEAN CORPUSCULAR HEMOGLOBIN 28 PG (26.0-33.0); MEAN CORPUSCULAR HGB CONC 32 g/dl (31.0-36.0); MEAN CORPUSCULAR VOLUME 85 fL (82-100); MONOCYTES # (AUTO) 0.7 K/uL (0.1-1.30); MONOCYTES % (AUTO) 5.2 % (2.0-12.0); NEUTROPHILS # (AUTO) 10.7 K/uL (1.8-8.9); PLATELET COUNT (AUTO) 787 K/uL (150-450); RED BLOOD CELL COUNT(AUTO) 2.89 MIL/uL (4.0-5.2); RED CELL DISTRIBUTION WIDTH 17.3 % (11.5-15.0); WHITE BLOOD COUNT (AUTO) 14.2 K/uL (4.3-11.0)
[2025-04-20 12:00] VITALS: BP 103/69; TEMP 98.6; O2SAT 99
[2025-04-20 16:00] VITALS: BP 112/64; TEMP 99.3; O2SAT 97
[2025-04-20 20:00] VITALS: BP 110/74; TEMP 97.7; O2SAT 100
[2025-04-21] VITALS (8 sets, daily range): BP systolic 104–121; BP diastolic 54–75; TEMP 97.5–99.5; O2SAT 95–100
[2025-04-21 08:01] LABS: BASOPHILS % (AUTO) 0.4 % (0.0-2.0); EOSINOPHILS # (AUTO) 0.5 K/uL (0.0-0.7); HEMATOCRIT 23 % (33-45); HEMOGLOBIN 7.4 g/dL (11.5-14.8); LYMPHOCYTES # (AUTO) 2.8 K/uL (0.8-4.8); LYMPHOCYTES % (AUTO) 23.2 % (20.0-44.0); MEAN CORPUSCULAR HEMOGLOBIN 26 PG (26.0-33.0); MEAN CORPUSCULAR HGB CONC 32 g/dl (31.0-36.0); MEAN CORPUSCULAR VOLUME 82 fL (82-100); MONOCYTES # (AUTO) 0.6 K/uL (0.1-1.30); MONOCYTES % (AUTO) 5.3 % (2.0-12.0); NEUTROPHILS # (AUTO) 8.1 K/uL (1.8-8.9); NEUTROPHILS % (AUTO) 67.1 % (43.0-81.0); PLATELET COUNT (AUTO) 866 K/uL (150-450); RED CELL DISTRIBUTION WIDTH 16.8 % (11.5-15.0); WHITE BLOOD COUNT (AUTO) 12.1 K/uL (4.3-11.0)
[2025-04-21 08:07] LABS: CALCIUM, SERUM 9.1 mg/dL (8.5-10.1); CREATININE 0.4 mg/dL (0.6-1.3); POTASSIUM 3.8 mmol/L (3.5-5.1)
[2025-04-21] MEDS ORDERED: IOHEXOL-300 100 ML VIAL IV ONE (15:03)
[2025-04-21] MEDS ORDERED: IV NS 0.9% 250 ML IV ONE (15:03)
[2025-04-21] MEDS: VANCOMYCIN 1 GM in IV D5W 250 ML IV SCH (22:42)
[2025-04-22] VITALS: BP 106/77; TEMP 98.6; O2SAT 100
[2025-04-22 04:00] VITALS: BP 113/72; TEMP 98.6; O2SAT 99
[2025-04-22 07:30] LABS: MAGNESIUM 2.3 mg/dL (1.8-2.4); PHOSPHORUS 3.5 mg/dL (2.5-4.9)
[2025-04-22 07:31] LABS: CALCIUM, SERUM 9.5 mg/dL (8.5-10.1); CREATININE 0.4 mg/dL (0.6-1.3); POTASSIUM 3.9 mmol/L (3.5-5.1)
[2025-04-22 08:00] VITALS: BP 105/66; TEMP 98.2; O2SAT 99
[2025-04-22 08:41] LABS: BASOPHILS % (AUTO) 0.4 % (0.0-2.0); EOSINOPHILS # (AUTO) 0.4 K/uL (0.0-0.7); EOSINOPHILS % (AUTO) 4.2 % (0.0-6.0); HEMATOCRIT 25 % (33-45); HEMOGLOBIN 8.1 g/dL (11.5-14.8); LYMPHOCYTES # (AUTO) 2.4 K/uL (0.8-4.8); LYMPHOCYTES % (AUTO) 24.3 % (20.0-44.0); MEAN CORPUSCULAR HEMOGLOBIN 26 PG (26.0-33.0); MEAN CORPUSCULAR HGB CONC 32 g/dl (31.0-36.0); MEAN CORPUSCULAR VOLUME 82 fL (82-100); MONOCYTES # (AUTO) 0.6 K/uL (0.1-1.30); MONOCYTES % (AUTO) 6.4 % (2.0-12.0); NEUTROPHILS # (AUTO) 6.3 K/uL (1.8-8.9); NEUTROPHILS % (AUTO) 64.7 % (43.0-81.0); RED BLOOD CELL COUNT(AUTO) 3.07 MIL/uL (4.0-5.2); RED CELL DISTRIBUTION WIDTH 16.6 % (11.5-15.0); WHITE BLOOD COUNT (AUTO) 9.7 K/uL (4.3-11.0)
[2025-04-22 09:28] LABS: PLATELET COUNT (AUTO) 973 K/uL (150-450)
[2025-04-22 12:00] VITALS: BP 105/62; TEMP 98.4; O2SAT 99
[2025-04-22 14:30] LABS: EOSINOPHILS % (MANUAL) 1 % (0-4); LYMPHOCYTES % (MANUAL) 30 % (16-48); MONOCYTES % (MANUAL) 4 % (0-11.0); NEUTROPHILS % (MANUAL) 65 (42-76); PLATELET ESTIMATE INCREASED
[2025-04-22 16:05] VITALS: BP 117/67; TEMP 98.8; O2SAT 97
[2025-04-22 20:00] VITALS: BP 102/63; TEMP 98.4; O2SAT 97
[2025-04-23] VITALS: BP 105/67; TEMP 98.8; O2SAT 98
[2025-04-23 04:00] VITALS: BP 110/68; TEMP 98.2; O2SAT 98
[2025-04-23 07:48] LABS: CALCIUM, SERUM 9.3 mg/dL (8.5-10.1); CREATININE 0.6 mg/dL (0.6-1.3); POTASSIUM 4.4 mmol/L (3.5-5.1)
[2025-04-23 08:00] VITALS: BP 108/66; TEMP 98.1; O2SAT 97
[2025-04-23 08:39] LABS: BASOPHILS # (AUTO) 0.1 K/uL (0.0-0.2); BASOPHILS % (AUTO) 0.6 % (0.0-2.0); EOSINOPHILS # (AUTO) 0.4 K/uL (0.0-0.7); EOSINOPHILS % (AUTO) 4.4 % (0.0-6.0); HEMATOCRIT 27 % (33-45); HEMOGLOBIN 8.4 g/dL (11.5-14.8); LYMPHOCYTES # (AUTO) 2.5 K/uL (0.8-4.8); LYMPHOCYTES % (AUTO) 26.7 % (20.0-44.0); MEAN CORPUSCULAR HEMOGLOBIN 26 PG (26.0-33.0); MEAN CORPUSCULAR HGB CONC 32 g/dl (31.0-36.0); MEAN CORPUSCULAR VOLUME 82 fL (82-100); MONOCYTES # (AUTO) 0.7 K/uL (0.1-1.30); MONOCYTES % (AUTO) 7.5 % (2.0-12.0); NEUTROPHILS # (AUTO) 5.6 K/uL (1.8-8.9); NEUTROPHILS % (AUTO) 60.8 % (43.0-81.0); RED BLOOD CELL COUNT(AUTO) 3.26 MIL/uL (4.0-5.2); RED CELL DISTRIBUTION WIDTH 17.1 % (11.5-15.0); WHITE BLOOD COUNT (AUTO) 9.2 K/uL (4.3-11.0)
[2025-04-23 08:51] LABS: PLATELET COUNT (AUTO) 1057 K/uL (150-450)
[2025-04-23 10:31] LABS: EOSINOPHILS % (MANUAL) 5 % (0-4); LYMPHOCYTES % (MANUAL) 53 % (16-48); MONOCYTES % (MANUAL) 5 % (0-11.0); NEUTROPHILS % (MANUAL) 37 (42-76); PLATELET ESTIMATE INCREASED
[2025-04-23 10:32] LABS: ANISOCYTOSIS 1+; OVALOCYTES 1+
[2025-04-23 12:00] VITALS: BP 102/64; TEMP 98.3; O2SAT 98
[2025-04-23 16:00] VITALS: BP 100/59; TEMP 98.3; O2SAT 98
[2025-04-23] MEDS: HYDROXYUREA 500 MG CAPSULE PO SCH (16:32)
[2025-04-23 16:48] LABS: BASOPHILS # (AUTO) 0.1 K/uL (0.0-0.2); BASOPHILS % (AUTO) 0.5 % (0.0-2.0); EOSINOPHILS # (AUTO) 0.5 K/uL (0.0-0.7); EOSINOPHILS % (AUTO) 3.7 % (0.0-6.0); HEMATOCRIT 26 % (33-45); HEMOGLOBIN 8.1 g/dL (11.5-14.8); LYMPHOCYTES # (AUTO) 2.9 K/uL (0.8-4.8); MEAN CORPUSCULAR HEMOGLOBIN 26 PG (26.0-33.0); MEAN CORPUSCULAR HGB CONC 32 g/dl (31.0-36.0); MEAN CORPUSCULAR VOLUME 81 fL (82-100); MONOCYTES # (AUTO) 0.8 K/uL (0.1-1.30); MONOCYTES % (AUTO) 6.1 % (2.0-12.0); NEUTROPHILS # (AUTO) 8.2 K/uL (1.8-8.9); NEUTROPHILS % (AUTO) 66.7 % (43.0-81.0); RED BLOOD CELL COUNT(AUTO) 3.15 MIL/uL (4.0-5.2); RED CELL DISTRIBUTION WIDTH 17.4 % (11.5-15.0); WHITE BLOOD COUNT (AUTO) 12.4 K/uL (4.3-11.0)
[2025-04-23 16:59] LABS: IRON, SERUM 19 ug/dl (50-175); TOTAL IRON BINDING CAPACITY 207 ug/dl (250-450)
[2025-04-23 17:07] LABS: PLATELET COUNT (AUTO) 1212 K/uL (150-450)
[2025-04-23 17:55] LABS: FERRITIN 561 ng/mL (8-388)
[2025-04-23 19:40] LABS: RHEUMATOID FACTOR SCREEN NEGATIVE (NEGATIVE)
[2025-04-23 20:00] VITALS: BP 100/59; TEMP 98.2; O2SAT 100
[2025-04-23 20:05] LABS: LYMPHOCYTES % (MANUAL) 24 % (16-48); NEUTROPHILS % (MANUAL) 68 (42-76)
[2025-04-23 20:06] LABS: ANISOCYTOSIS 1+; EOSINOPHILS % (MANUAL) 3 % (0-4); MONOCYTES % (MANUAL) 5 % (0-11.0); PLATELET ESTIMATE INCREASED
[2025-04-24] VITALS: BP 113/65; TEMP 99.5; O2SAT 99
[2025-04-24 04:00] VITALS: BP 119/67; TEMP 99.3; O2SAT 99
[2025-04-24 06:51] LABS: BASOPHILS % (AUTO) 0.4 % (0.0-2.0); EOSINOPHILS # (AUTO) 0.3 K/uL (0.0-0.7); EOSINOPHILS % (AUTO) 2.7 % (0.0-6.0); HEMATOCRIT 25 % (33-45); HEMOGLOBIN 8.1 g/dL (11.5-14.8); LYMPHOCYTES # (AUTO) 2.9 K/uL (0.8-4.8); LYMPHOCYTES % (AUTO) 23.6 % (20.0-44.0); MEAN CORPUSCULAR HEMOGLOBIN 26 PG (26.0-33.0); MEAN CORPUSCULAR HGB CONC 32 g/dl (31.0-36.0); MEAN CORPUSCULAR VOLUME 81 fL (82-100); MONOCYTES # (AUTO) 0.8 K/uL (0.1-1.30); MONOCYTES % (AUTO) 6.9 % (2.0-12.0); NEUTROPHILS # (AUTO) 8.1 K/uL (1.8-8.9); NEUTROPHILS % (AUTO) 66.4 % (43.0-81.0); RED BLOOD CELL COUNT(AUTO) 3.09 MIL/uL (4.0-5.2); RED CELL DISTRIBUTION WIDTH 17.1 % (11.5-15.0); WHITE BLOOD COUNT (AUTO) 12.3 K/uL (4.3-11.0)
[2025-04-24 07:22] LABS: URIC ACID 2.8 mg/dL (2.6-7.2)
[2025-04-24 07:38] LABS: PLATELET COUNT (AUTO) 1120 K/uL (150-450)
[2025-04-24 07:58] LABS: ALBUMIN 1.7 g/dL (3.4-5.0); BILIRUBIN,TOTAL 0.2 mg/dL (0.2-1.0); CALCIUM, SERUM 9.7 mg/dL (8.5-10.1); CREATININE 0.5 mg/dL (0.6-1.3); MAGNESIUM 2.3 mg/dL (1.8-2.4); POTASSIUM 4.6 mmol/L (3.5-5.1); TOTAL PROTEIN, SERUM 7.9 g/dL (6.4-8.2)
[2025-04-24 08:07] LABS: IMMUNOGLOBULIN A, SERUM 443 mg/dL (87-352); IMMUNOGLOBULIN G, SERUM 1592 mg/dL (586-1602); IMMUNOGLOBULIN M, SERUM 41 mg/dL (26-217)
[2025-04-24] MEDS: ALLOPURINOL 100 MG TABLET PO SCH (08:09)
[2025-04-24 09:24] VITALS: BP 152/88; TEMP 99.5; O2SAT 99
[2025-04-24 10:29] LABS: EOSINOPHILS % (MANUAL) 5 % (0-4); LYMPHOCYTES % (MANUAL) 31 % (16-48); MONOCYTES % (MANUAL) 5 % (0-11.0); NEUTROPHILS % (MANUAL) 59 (42-76); PLATELET ESTIMATE INCREASED
[2025-04-24 10:30] LABS: ANISOCYTOSIS 1+; STOMATOCYTES 1+
[2025-04-24 11:09] LABS: FOLIC ACID 11.3 ng/mL (>3.0); FREE KAPPA LT CHAINS SERUM 95.9 mg/L (3.3-19.4); FREE LAMBDA LT CHAIN SERUM 72.4 mg/L (5.7-26.3); KAPPA/LAMBDA RATIO SERUM 1.32 (0.26-1.65)
[2025-04-24 12:00] VITALS: BP 112/76; TEMP 97.7; O2SAT 99
[2025-04-24 16:00] VITALS: BP 114/78; TEMP 99.8; O2SAT 99
[2025-04-24 20:00] VITALS: BP 94/58; TEMP 98.2; O2SAT 98
[2025-04-25] VITALS: BP 123/77; TEMP 97.9; O2SAT 98
[2025-04-25 04:00] VITALS: BP 120/79; TEMP 98.4; O2SAT 97
[2025-04-25 06:45] LABS: BASOPHILS # (AUTO) 0.1 K/uL (0.0-0.2); BASOPHILS % (AUTO) 0.5 % (0.0-2.0); EOSINOPHILS # (AUTO) 0.4 K/uL (0.0-0.7); EOSINOPHILS % (AUTO) 3.2 % (0.0-6.0); HEMATOCRIT 27 % (33-45); HEMOGLOBIN 8.6 g/dL (11.5-14.8); LYMPHOCYTES # (AUTO) 2.4 K/uL (0.8-4.8); LYMPHOCYTES % (AUTO) 20.7 % (20.0-44.0); MEAN CORPUSCULAR HEMOGLOBIN 25 PG (26.0-33.0); MEAN CORPUSCULAR HGB CONC 32 g/dl (31.0-36.0); MEAN CORPUSCULAR VOLUME 80 fL (82-100); MONOCYTES # (AUTO) 0.7 K/uL (0.1-1.30); MONOCYTES % (AUTO) 6.4 % (2.0-12.0); NEUTROPHILS # (AUTO) 7.9 K/uL (1.8-8.9); NEUTROPHILS % (AUTO) 69.2 % (43.0-81.0); RED BLOOD CELL COUNT(AUTO) 3.38 MIL/uL (4.0-5.2); RED CELL DISTRIBUTION WIDTH 17.1 % (11.5-15.0); WHITE BLOOD COUNT (AUTO) 11.4 K/uL (4.3-11.0)
[2025-04-25 06:50] LABS: PLATELET COUNT (AUTO) 1113 K/uL (150-450)
[2025-04-25 07:12] LABS: URIC ACID 2.5 mg/dL (2.6-7.2)
[2025-04-25 07:13] LABS: CALCIUM, SERUM 10.2 mg/dL (8.5-10.1); CREATININE 0.5 mg/dL (0.6-1.3); MAGNESIUM 2.3 mg/dL (1.8-2.4); PHOSPHORUS 4.3 mg/dL (2.5-4.9); POTASSIUM 4.2 mmol/L (3.5-5.1)
[2025-04-25 08:00] VITALS: BP 114/73; TEMP 98.2; O2SAT 97
[2025-04-25 09:39] LABS: EOSINOPHILS % (MANUAL) 4 % (0-4); LYMPHOCYTES % (MANUAL) 22 % (16-48); MONOCYTES % (MANUAL) 6 % (0-11.0); NEUTROPHILS % (MANUAL) 68 (42-76); PLATELET ESTIMATE INCREASED
[2025-04-25 12:00] VITALS: BP 107/71; TEMP 98.6; O2SAT 97
[2025-04-25 12:12] LABS: *ANA ANTI-CENTROMERE B AB <0.2 AI (0.0-0.9); *ANA ANTI-DNA(DS) AB, QN 1 IU/mL (0-9); *ANA ANTI-JO-1 <0.2 AI (0.0-0.9); *ANA ANTICHROMATIN ANTIBODY <0.2 AI (0.0-0.9); *ANA RNP ANTIBODIES 0.2 AI (0.0-0.9); *ANA SJOGREN'S ANTI-SS-A 0.2 AI (0.0-0.9); *ANA SJOGREN'S ANTI-SS-B <0.2 AI (0.0-0.9); *ANAANTI-SCLERODERMA-70 AB <0.2 AI (0.0-0.9); *ANASMITH AB <0.2 AI (0.0-0.9)
[2025-04-25 16:00] VITALS: BP 114/75; TEMP 97.9; O2SAT 95
[2025-04-25] MEDS ORDERED: TOBRAMYCIN 80 MG in IV D5W 50 ML IV SCH (16:00)
[2025-04-25 16:34] LABS: BASOPHILS # (AUTO) 0.1 K/uL (0.0-0.2); BASOPHILS % (AUTO) 1.1 % (0.0-2.0); EOSINOPHILS # (AUTO) 0.4 K/uL (0.0-0.7); EOSINOPHILS % (AUTO) 3.8 % (0.0-6.0); HEMATOCRIT 25 % (33-45); HEMOGLOBIN 7.9 g/dL (11.5-14.8); LYMPHOCYTES % (AUTO) 29.6 % (20.0-44.0); MEAN CORPUSCULAR HEMOGLOBIN 26 PG (26.0-33.0); MEAN CORPUSCULAR HGB CONC 32 g/dl (31.0-36.0); MEAN CORPUSCULAR VOLUME 82 fL (82-100); MONOCYTES # (AUTO) 0.7 K/uL (0.1-1.30); MONOCYTES % (AUTO) 6.6 % (2.0-12.0); NEUTROPHILS % (AUTO) 58.9 % (43.0-81.0); WHITE BLOOD COUNT (AUTO) 10.2 K/uL (4.3-11.0)
[2025-04-25 16:49] LABS: PLATELET COUNT (AUTO) 1043 K/uL (150-450)
[2025-04-25 17:31] LABS: ANISOCYTOSIS 1+; EOSINOPHILS % (MANUAL) 1 % (0-4); LYMPHOCYTES % (MANUAL) 38 % (16-48); MONOCYTES % (MANUAL) 11 % (0-11.0); NEUTROPHILS % (MANUAL) 50 (42-76); PLATELET ESTIMATE INCREASED
[2025-04-25] MEDS: D5W IV SCH (18:23)
[2025-04-25] MEDS: TOBRAMYCIN IV SCH (18:23)
[2025-04-25] MEDS: HYDROXYUREA 500 MG CAPSULE PO SCH (18:27)
[2025-04-25 20:00] VITALS: BP 114/73; TEMP 99.7; O2SAT 97
[2025-04-26] VITALS (14 sets, daily range): BP systolic 115–135; BP diastolic 66–79; TEMP 97.9–99.9; O2SAT 98–99
[2025-04-26] MEDS: diphenhydrAMINE HCL 50 MG/ML VIAL IV ONE (01:28)
[2025-04-26 08:35] LABS: BASOPHILS # (AUTO) 0.1 K/uL (0.0-0.2); BASOPHILS % (AUTO) 1.1 % (0.0-2.0); EOSINOPHILS # (AUTO) 0.4 K/uL (0.0-0.7); EOSINOPHILS % (AUTO) 3.7 % (0.0-6.0); HEMATOCRIT 30 % (33-45); HEMOGLOBIN 9.6 g/dL (11.5-14.8); LYMPHOCYTES # (AUTO) 3.4 K/uL (0.8-4.8); LYMPHOCYTES % (AUTO) 29.3 % (20.0-44.0); MEAN CORPUSCULAR HEMOGLOBIN 26 PG (26.0-33.0); MEAN CORPUSCULAR HGB CONC 32 g/dl (31.0-36.0); MEAN CORPUSCULAR VOLUME 82 fL (82-100); MONOCYTES # (AUTO) 0.8 K/uL (0.1-1.30); MONOCYTES % (AUTO) 7.1 % (2.0-12.0); NEUTROPHILS # (AUTO) 6.7 K/uL (1.8-8.9); NEUTROPHILS % (AUTO) 58.8 % (43.0-81.0); RED BLOOD CELL COUNT(AUTO) 3.65 MIL/uL (4.0-5.2); RED CELL DISTRIBUTION WIDTH 16.9 % (11.5-15.0); WHITE BLOOD COUNT (AUTO) 11.5 K/uL (4.3-11.0)
[2025-04-26 08:45] LABS: PLATELET COUNT (AUTO) 966 K/uL (150-450)
[2025-04-26 08:46] LABS: CALCIUM, SERUM 10.2 mg/dL (8.5-10.1); CREATININE 0.5 mg/dL (0.6-1.3); POTASSIUM 4.5 mmol/L (3.5-5.1)
[2025-04-26 11:24] LABS: ANISOCYTOSIS 1+; BAND % (MANUAL) 30 % (0.0-5.0); LYMPHOCYTES % (MANUAL) 7 % (16-48); MONOCYTES % (MANUAL) 3 % (0-11.0); NEUTROPHILS % (MANUAL) 60 (42-76); PLATELET ESTIMATE INCREASED
[2025-04-27] VITALS: BP 113/72; TEMP 98.2; O2SAT 97
[2025-04-27 04:00] VITALS: BP 128/76; TEMP 98.6; O2SAT 100
[2025-04-27 07:52] LABS: URIC ACID 2.6 mg/dL (2.6-7.2)
[2025-04-27 07:53] LABS: CALCIUM, SERUM 10.8 mg/dL (8.5-10.1); CREATININE 0.5 mg/dL (0.6-1.3); POTASSIUM 4.1 mmol/L (3.5-5.1)
[2025-04-27 07:54] LABS: ALBUMIN 1.9 g/dL (3.4-5.0); BILIRUBIN,TOTAL 0.3 mg/dL (0.2-1.0); MAGNESIUM 2.1 mg/dL (1.8-2.4); PHOSPHORUS 4.2 mg/dL (2.5-4.9); TOTAL PROTEIN, SERUM 8.3 g/dL (6.4-8.2)
[2025-04-27 07:55] LABS: BASOPHILS # (AUTO) 0.1 K/uL (0.0-0.2); BASOPHILS % (AUTO) 0.7 % (0.0-2.0); EOSINOPHILS # (AUTO) 0.4 K/uL (0.0-0.7); EOSINOPHILS % (AUTO) 3.3 % (0.0-6.0); HEMATOCRIT 31 % (33-45); HEMOGLOBIN 10.1 g/dL (11.5-14.8); LYMPHOCYTES % (AUTO) 27.4 % (20.0-44.0); MEAN CORPUSCULAR HEMOGLOBIN 27 PG (26.0-33.0); MEAN CORPUSCULAR HGB CONC 33 g/dl (31.0-36.0); MEAN CORPUSCULAR VOLUME 82 fL (82-100); MONOCYTES # (AUTO) 0.5 K/uL (0.1-1.30); MONOCYTES % (AUTO) 4.4 % (2.0-12.0); NEUTROPHILS # (AUTO) 7.1 K/uL (1.8-8.9); NEUTROPHILS % (AUTO) 64.2 % (43.0-81.0); RED BLOOD CELL COUNT(AUTO) 3.79 MIL/uL (4.0-5.2); RED CELL DISTRIBUTION WIDTH 16.9 % (11.5-15.0); WHITE BLOOD COUNT (AUTO) 11.1 K/uL (4.3-11.0)
[2025-04-27 08:00] VITALS: BP 127/77; TEMP 98.6; O2SAT 96
[2025-04-27 08:00] LABS: PLATELET COUNT (AUTO) 1021 K/uL (150-450)
[2025-04-27 10:59] LABS: EOSINOPHILS % (MANUAL) 4 % (0-4); LYMPHOCYTES % (MANUAL) 33 % (16-48); MONOCYTES % (MANUAL) 4 % (0-11.0); NEUTROPHILS % (MANUAL) 59 (42-76); PLATELET ESTIMATE INCREASED
[2025-04-27 11:00] LABS: ANISOCYTOSIS 1+
[2025-04-27 12:00] VITALS: BP 106/99; TEMP 99.1; O2SAT 98
[2025-04-27] MEDS: VANCOMYCIN 500 MG in IV D5W 100ml IV SCH (12:29)
[2025-04-27] MEDS: HYDROXYUREA 500 MG CAPSULE PO SCH (12:44)
[2025-04-27 16:00] VITALS: BP 119/76; TEMP 99; O2SAT 98
[2025-04-27 20:00] VITALS: BP 107/68; TEMP 99.1; O2SAT 97
[2025-04-27] MEDS: D5W IV SCH (22:35)
[2025-04-27] MEDS: TOBRAMYCIN IV SCH (22:35)
[2025-04-28] VITALS: BP 111/72; TEMP 99; O2SAT 98
[2025-04-28 04:00] VITALS: BP 116/70; TEMP 98.6; O2SAT 97
[2025-04-28 07:15] LABS: BILIRUBIN,TOTAL 0.2 mg/dL (0.2-1.0); CALCIUM, SERUM 10.7 mg/dL (8.5-10.1); CREATININE 0.5 mg/dL (0.6-1.3); MAGNESIUM 2.2 mg/dL (1.8-2.4); PHOSPHORUS 4.9 mg/dL (2.5-4.9); POTASSIUM 4.1 mmol/L (3.5-5.1); TOTAL PROTEIN, SERUM 8.3 g/dL (6.4-8.2)
[2025-04-28 07:31] LABS: BASOPHILS # (AUTO) 0.1 K/uL (0.0-0.2); BASOPHILS % (AUTO) 0.6 % (0.0-2.0); EOSINOPHILS # (AUTO) 0.4 K/uL (0.0-0.7); EOSINOPHILS % (AUTO) 4.1 % (0.0-6.0); HEMATOCRIT 30 % (33-45); LYMPHOCYTES % (AUTO) 32.9 % (20.0-44.0); MEAN CORPUSCULAR HEMOGLOBIN 28 PG (26.0-33.0); MEAN CORPUSCULAR HGB CONC 33 g/dl (31.0-36.0); MEAN CORPUSCULAR VOLUME 85 fL (82-100); MONOCYTES # (AUTO) 0.5 K/uL (0.1-1.30); MONOCYTES % (AUTO) 5.8 % (2.0-12.0); NEUTROPHILS # (AUTO) 5.2 K/uL (1.8-8.9); NEUTROPHILS % (AUTO) 56.6 % (43.0-81.0); RED BLOOD CELL COUNT(AUTO) 3.56 MIL/uL (4.0-5.2); RED CELL DISTRIBUTION WIDTH 17.1 % (11.5-15.0); WHITE BLOOD COUNT (AUTO) 9.1 K/uL (4.3-11.0)
[2025-04-28 08:00] VITALS: BP 114/77; TEMP 97.5; O2SAT 98
[2025-04-28 08:09] LABS: PLATELET COUNT (AUTO) 990 K/uL (150-450)
[2025-04-28 11:08] LABS: URIC ACID 2.9 mg/dL (2.6-7.2)
[2025-04-28 12:00] VITALS: BP 101/69; TEMP 98.4; O2SAT 98
[2025-04-28 13:32] LABS: EOSINOPHILS % (MANUAL) 7 % (0-4); LYMPHOCYTES % (MANUAL) 39 % (16-48); MONOCYTES % (MANUAL) 2 % (0-11.0); NEUTROPHILS % (MANUAL) 52 (42-76)
[2025-04-28 13:33] LABS: PLATELET ESTIMATE INCREASED
[2025-04-28 16:00] VITALS: BP 102/60; TEMP 98.1; O2SAT 98
[2025-04-28 20:00] VITALS: BP 111/75; TEMP 99; O2SAT 96
[2025-04-29] VITALS: BP 111/70; TEMP 98.4; O2SAT 96
[2025-04-29 04:00] VITALS: BP 102/68; TEMP 98.4; O2SAT 95
[2025-04-29 08:00] VITALS: BP 117/77; TEMP 98.6; O2SAT 99
[2025-04-29 08:23] LABS: URIC ACID 3.4 mg/dL (2.6-7.2)
[2025-04-29 08:32] LABS: ALBUMIN 2.1 g/dL (3.4-5.0); BILIRUBIN,TOTAL 0.3 mg/dL (0.2-1.0); CALCIUM, SERUM 10.8 mg/dL (8.5-10.1); CREATININE 0.5 mg/dL (0.6-1.3); MAGNESIUM 2.1 mg/dL (1.8-2.4); PHOSPHORUS 4.7 mg/dL (2.5-4.9); POTASSIUM 3.9 mmol/L (3.5-5.1); TOTAL PROTEIN, SERUM 8.3 g/dL (6.4-8.2)
[2025-04-29 08:41] LABS: BASOPHILS # (AUTO) 0.1 K/uL (0.0-0.2); BASOPHILS % (AUTO) 0.5 % (0.0-2.0); EOSINOPHILS # (AUTO) 0.3 K/uL (0.0-0.7); HEMATOCRIT 31 % (33-45); LYMPHOCYTES # (AUTO) 2.4 K/uL (0.8-4.8); LYMPHOCYTES % (AUTO) 24.2 % (20.0-44.0); MEAN CORPUSCULAR HEMOGLOBIN 27 PG (26.0-33.0); MEAN CORPUSCULAR HGB CONC 33 g/dl (31.0-36.0); MEAN CORPUSCULAR VOLUME 83 fL (82-100); MONOCYTES # (AUTO) 0.6 K/uL (0.1-1.30); MONOCYTES % (AUTO) 5.6 % (2.0-12.0); NEUTROPHILS # (AUTO) 6.6 K/uL (1.8-8.9); NEUTROPHILS % (AUTO) 66.7 % (43.0-81.0); RED BLOOD CELL COUNT(AUTO) 3.72 MIL/uL (4.0-5.2); RED CELL DISTRIBUTION WIDTH 17.1 % (11.5-15.0); WHITE BLOOD COUNT (AUTO) 9.9 K/uL (4.3-11.0)
[2025-04-29 08:52] LABS: PLATELET COUNT (AUTO) 944 K/uL (150-450)
[2025-04-29 09:50] LABS: EOSINOPHILS % (MANUAL) 5 % (0-4); LYMPHOCYTES % (MANUAL) 34 % (16-48); MONOCYTES % (MANUAL) 1 % (0-11.0); NEUTROPHILS % (MANUAL) 60 (42-76); PLATELET ESTIMATE INCREASED
[2025-04-29 09:51] LABS: ANISOCYTOSIS 1+
[2025-04-29] MEDS ORDERED: NUTR1PAC14 GT (10:41)
[2025-04-29] MEDS ORDERED: MERO500P IV (10:41)
[2025-04-29] MEDS ORDERED: ALLO100T25 PO (10:41)
[2025-04-29] MEDS ORDERED: VANC500F2 IV (10:41)
[2025-04-29] MEDS ORDERED: HYDR500C PO (10:41)
[2025-04-29 12:00] VITALS: BP 106/71; TEMP 98.4; O2SAT 99
[2025-04-29 13:00] VITALS: BP 106/71
== END 2025-04-29 14:06 | DRG 710 ==
LOC: ER 14:01 → ICU 16:29 → TELE1 19:14 → TELE-TD 19:53 → TELE1 04-16 08:19
PROVIDERS: ADMIT Nurse Practitioner Acute Care; ATTEND Nurse Practitioner Acute Care
PROC: 5A1955Z Respiratory Ventilation, Greater than 96 Consecutive Hours (ICD-10-PCS; principal; 2025-04-15)
PROC: 0HBRXZZ Excision of Toe Nail, External Approach (ICD-10-PCS; 2025-04-16)
PROC: 30233N1 Transfusion of Nonautologous Red Blood Cells into Peripheral Vein, Percutaneous Approach (ICD-10-PCS; 2025-04-16)
PROC: 0KBN0ZZ Excision of Right Hip Muscle, Open Approach (ICD-10-PCS; 2025-04-17)
PROC: 0KBP0ZZ Excision of Left Hip Muscle, Open Approach (ICD-10-PCS; 2025-04-17)
PROC: 0KBP0ZZ Excision of Left Hip Muscle, Open Approach (ICD-10-PCS; 2025-04-22)
PROC: 0KBN0ZZ Excision of Right Hip Muscle, Open Approach (ICD-10-PCS; 2025-04-22)
PROC: 0KBP0ZZ Excision of Left Hip Muscle, Open Approach (ICD-10-PCS; 2025-04-24)
PROC: 0KBN0ZZ Excision of Right Hip Muscle, Open Approach (ICD-10-PCS; 2025-04-24)
DX: A41.9 Sepsis, unspecified organism (principal); G06.0 Intracranial abscess and granuloma; G93.49 Other encephalopathy; J15.69 Pneumonia due to other Gram-negative bacteria; E44.0 Moderate protein-calorie malnutrition; J90 Pleural effusion, not elsewhere classified; L89.154 Pressure ulcer of sacral region, stage 4; I27.20 Pulmonary hypertension, unspecified; J96.10 Chronic respiratory failure, unspecified whether with hypoxia or hypercapnia; Z99.11 Dependence on respirator [ventilator] status; E87.1 Hypo-osmolality and hyponatremia; G40.909 Epilepsy, unspecified, not intractable, without status epilepticus; N39.0 Urinary tract infection, site not specified; R13.10 Dysphagia, unspecified; Z93.0 Tracheostomy status; Z93.1 Gastrostomy status; Z98.890 Other specified postprocedural states; Z86.61 Personal history of infections of the central nervous system; Z86.73 Personal history of transient ischemic attack (TIA), and cerebral infarction without residual deficits; I10 Essential (primary) hypertension; Z79.51 Long term (current) use of inhaled steroids; Z79.899 Other long term (current) drug therapy; Z79.4 Long term (current) use of insulin; Z79.82 Long term (current) use of aspirin; D72.820 Lymphocytosis (symptomatic); D75.839 Thrombocytosis, unspecified; E11.40 Type 2 diabetes mellitus with diabetic neuropathy, unspecified; G93.89 Other specified disorders of brain; L89.819 Pressure ulcer of head, unspecified stage; L89.619 Pressure ulcer of right heel, unspecified stage; N31.9 Neuromuscular dysfunction of bladder, unspecified; T79.7XXA Traumatic subcutaneous emphysema, initial encounter; X58.XXXA Exposure to other specified factors, initial encounter; Y92.9 Unspecified place or not applicable; Y95 Nosocomial condition; E78.5 Hyperlipidemia, unspecified; B35.1 Tinea unguium; D63.8 Anemia in other chronic diseases classified elsewhere; E83.52 Hypercalcemia; E86.9 Volume depletion, unspecified; E88.09 Other disorders of plasma-protein metabolism, not elsewhere classified; M46.28 Osteomyelitis of vertebra, sacral and sacrococcygeal region; E11.69 Type 2 diabetes mellitus with other specified complication; J98.11 Atelectasis; Z87.828 Personal history of other (healed) physical injury and trauma
CPT/HCPCS: 31720; 36415; 70450-TC; 70460-TC; 71045-TC; 80048-TC; 80053-TC; 80061-TC; 80076-TC; 80202-TC; 81001; 82550-TC; 82607-TC; 82728-TC; 82784; 82962-TC; 83540-TC; 83605-TC; 83735-TC; 83970; 84100-TC; 84155; 84165; 84443-TC; 84484-TC; 84550-TC; 84703-TC; 85025-TC; 85730-TC; 86140-TC; 86225; 86235; 86334; 86431-TC; 86850-TC; 87040-TC; 87081-TC; 87086-TC; 93307-TC; 93970-TC; 94002-TC; 94003-TC; 94760-TC; 94762-TC; 94799-TC; A4223; A4623; A6213; A6403; A7526; G0378; J1200; J1650; J1815; J1953; J2185; J2270; J2543; J3260; J3370; J3371; J7030; J7050; J7060; P9016; Q9967

== ENCOUNTER 2025-08-20 08:55 | Inpatient (IN) | payer OTHER ==
[2025-08-20] VITALS (7 sets, daily range): BP systolic 109–117; BP diastolic 69–82; TEMP 97.9–99.3; O2SAT 98–99
[~2025-08-20] VITALS: Ht 152.4 cm; Wt 62.6 kg
[~2025-08-20 08:55] MED LIST changes: +ALBU2.5V11 IH; +ALLO100T25 PO; +CRAN3875 GT; -ERTA1VIA4 IJ; +HYDR500C PO; +MERO500P IV; +MIDO5TAB4 GT; -MIDO5TAB4 PO; +NUTR1PAC14 GT; +OMEG1600 GT; -OMEGA-3 FATTY ACIDS GT; +TRAM50TA2 GT; +VANC500F2 IV; +ZINC220C6; +ZINC50TA65 GT
[2025-08-20 09:32] LABS: PLATELET COUNT (AUTO) 511 K/uL (150-450); RED BLOOD CELL COUNT(AUTO) 2.13 MIL/uL (4.0-5.2); RED CELL DISTRIBUTION WIDTH 15.0 % (11.5-15.0); WHITE BLOOD COUNT (AUTO) 11.4 K/uL (4.3-11.0)
[2025-08-20 09:56] LABS: CALCIUM, SERUM 10.5 mg/dL (8.5-10.1); CREATININE 1.2 mg/dL (0.6-1.3); SODIUM SERUM 140.0 mmol/L (136-145); UREA NITROGEN, BLOOD 50.0 mg/dL (7-18)
[2025-08-20 10:02] LABS: ASPARTATE AMINOTRANSFERASE 15.0 U/L (15-37); TOTAL PROTEIN, SERUM 7.8 g/dL (6.4-8.2)
[2025-08-20 10:06] LABS: INR 1.02 (0.91-1.10)
[2025-08-20 11:22] LABS: BASOPHILS % (MANUAL) 0 % (0.0-2.0); EOSINOPHILS % (MANUAL) 3 % (0-4); LYMPHOCYTES % (MANUAL) 25 % (16-48); MONOCYTES % (MANUAL) 9 % (0-11.0); NEUTROPHILS % (MANUAL) 63 (42-76); PLATELET ESTIMATE ADEQUATE
[2025-08-20] MEDS ORDERED: COLL30OI TP (11:22)
[2025-08-20] MEDS ORDERED: SENN-291 PO (11:22)
[2025-08-20] MEDS ORDERED: POLY15DR40 EACHEYE (11:22)
[2025-08-20] MEDS ORDERED: MULT9LIQ9 GT (11:22)
[2025-08-20] MEDS: IV NS 0.9% 1,000 ML BAG IV ONE (11:45)
[2025-08-20] MEDS ORDERED: LEVOFLOXACIN 750 MG /D5W 150ML 150 ML IV ONE (11:45)
[2025-08-20] MEDS: LEVOFLOXACIN 750 MG /D5W 150ML 150 ML IV ONE (11:50)
[2025-08-20 12:09] LABS: APPEARANCE,URINE TURBID (CLEAR); BLOOD, URINE 1+ Ery/uL (NEGATIVE); LEUKOCYTE ESTERASE ,URINE 3+ (NEGATIVE); NITRITE, URINE POSITIVE (NEGATIVE); UGLUCOSE NEGATIVE (NEGATIVE)
[2025-08-20 12:16] LABS: ADD URINE CULTURE YES; SQUAMOUS EPITHELIAL CELL,UR 0-2 /HPF (None Seen)
[2025-08-20] MEDS ORDERED: LEVOFLOXACIN 500 MG /D5W 100ML 500 MG in PREMIX 1 EA IV SCH (14:00)
[2025-08-20] MEDS ORDERED: ALBUTEROL FS 2.5 MG/3 ML VIAL.NEB NEB PRN (14:00)
[2025-08-20] MEDS ORDERED: ACETAMINOPHEN 325 MG TABLET PO PRN (14:00)
[2025-08-20] MEDS ORDERED: ONDANSETRON HCL/PF 4 MG/2 ML VIAL IVP PRN (14:00)
[2025-08-20] MEDS ORDERED: MAG HYDROX/AL HYDROX/SIMETH 30 ML UDC PO PRN (14:00)
[2025-08-20] MEDS ORDERED: MAGNESIUM HYDROXIDE 30 ML UDC PO PRN (14:00)
[2025-08-20] MEDS: PANTOPRAZOLE 40 MG VIAL IV SCH (14:14)
[2025-08-20] MEDS ORDERED: PIPERACILLIN /TAZOBACTAM 3.375 G in IV D5W 50 ML IV SCH (14:30)
[2025-08-20] MEDS: ZOSYN IVPB 3.375 G in IV D5W 50ml IV ONE (15:34)
[2025-08-20] MEDS: IV NS 0.9% 1,000 ML IV PRN (15:35)
[2025-08-20] MEDS ORDERED: NA PHOS,M-B/NA PHOS,DI-BA 1 EA ENEMA RC PRN (17:00)
[2025-08-20] MEDS ORDERED: TRAMADOL HCL 50 MG TABLET GT PRN (17:00)
[2025-08-20] MEDS ORDERED: MAGNESIUM HYDROXIDE 30 ML UDC GT PRN ×2 (17:00→17:36)
[2025-08-20] MEDS ORDERED: BISACODYL SUPP (10 MG) 10 MG/SUPP.RECT SUPP.RECT RC PRN (17:00)
[2025-08-20] MEDS ORDERED: DEXTROSE 50%-WATER 50 ML DISP.SYRIN IV PRN (17:00)
[2025-08-20] MEDS ORDERED: ACETAMINOPHEN 160 MG/5 ML GT PRN (17:00)
[2025-08-20] MEDS: LABETALOL HCL (100MG) 100 MG TABLET GT SCH (17:44)
[2025-08-20] MEDS: BLOOD SUGAR DIAGNOSTIC 1 EACH STRIP IN SCH (17:44)
[2025-08-20] MEDS: BROMOCRIPTINE MESYLATE (2.5MG) 2.5 MG TABLET GT SCH (17:44)
[2025-08-20] MEDS: CHLORHEXIDINE GLUCONATE 15 ML UDC MM SCH (17:44)
[2025-08-20] MEDS: GLUCERNA 1.2 1,000 ML BOTTLE GT PRN (17:45)
[2025-08-20] MEDS: SENNOSIDES/DOCUSATE SODIUM 1 UDTAB TABLET PO SCH (17:45)
[2025-08-20] MEDS: POTASSIUM CHLORIDE 20 MEQ TAB.PRT.SR PO ONE (17:45)
[2025-08-20] MEDS: ALBUTEROL FS 2.5 MG/3 ML VIAL.NEB IH SCH (19:52)
[2025-08-20] MEDS ORDERED: DOSING PER PHARMACY-VANCOMYCIN IV XX PRN (20:00)
[2025-08-20] MEDS: MIDODRINE HCL (5MG) 5 MG TABLET GT SCH (21:47)
[2025-08-20] MEDS: LEVETIRACETAM SOL (5 ML) 100 MG/ML UDC GT SCH (21:47)
[2025-08-20] MEDS: ATORVASTATIN 40 MG TABLET GT SCH (21:48)
[2025-08-20] MEDS: VANCOMYCIN 1 GM in IV D5W 250ml IV ONE (21:51)
[2025-08-20] MEDS: VANCOMYCIN 750 MG in IV D5W 250 ML IV ONE (22:35)
[2025-08-20] MEDS: INSULIN GLARGINE, 100 UNIT/ML CARTRIDGE SQ SCH (23:33)
[2025-08-20] MEDS: INSULIN REGULAR, HUMAN 100 UNIT/ML 3 ML VIAL SQ PRN (23:35)
[2025-08-20] MEDS: PIPERACILLIN /TAZOBACTAM 3.375 G in IV D5W 100 ML IV SCH (23:38)
[2025-08-21] VITALS: BP 128/73; TEMP 98.5; O2SAT 98
[2025-08-21 04:00] VITALS: BP 125/68; TEMP 98.3; O2SAT 98
[2025-08-21 06:27] LABS: PLATELET COUNT (AUTO) 522 K/uL (150-450); RED BLOOD CELL COUNT(AUTO) 2.45 MIL/uL (4.0-5.2); RED CELL DISTRIBUTION WIDTH 14.3 % (11.5-15.0); WHITE BLOOD COUNT (AUTO) 8.8 K/uL (4.3-11.0)
[2025-08-21 06:43] LABS: CALCIUM, SERUM 10.2 mg/dL (8.5-10.1); CREATININE 1.1 mg/dL (0.6-1.3); PHOSPHORUS 4.5 mg/dL (2.5-4.9); SODIUM SERUM 144.0 mmol/L (136-145); UREA NITROGEN, BLOOD 38.0 mg/dL (7-18)
[2025-08-21 07:15] LABS: NT-PRO BNP 644.0 pg/mL (0-125)
[2025-08-21 08:00] VITALS: BP 117/68; TEMP 99.5; O2SAT 100
[2025-08-21] MEDS ORDERED: Medication Not On Formulary EA (Omega-3/Dha/Epa/Fish Oil (Fish Oil 1,600 mg/5 ml Liquid) GT SCH (09:00)
[2025-08-21] MEDS ORDERED: ASCORBIC ACID 500 MG TABLET GT SCH (09:00)
[2025-08-21] MEDS ORDERED: MULTIVIT W/MINERALS 1 TAB TABLET GT SCH (09:00)
[2025-08-21] MEDS ORDERED: PROSOURCE / PROSTAT (PYXIS) 30 ML UDC GT SCH ×2 (09:00)
[2025-08-21] MEDS: DOCUSATE SODIUM LIQ 100 MG/10 ML UDC GT SCH (09:55)
[2025-08-21] MEDS: PANTOPRAZOLE 40 MG/PACK PACK NG SCH (09:55)
[2025-08-21] MEDS: ACETAMINOPHEN 650 MG/20.3 ML UDC GT SCH (09:56)
[2025-08-21] MEDS: PROSOURCE / PROSTAT (PYXIS) 30 ML UDC PEG SCH (09:56)
[2025-08-21] MEDS: THERAHONEY GEL 1.5 OZ TUBE TP SCH (09:58)
[2025-08-21] MEDS: POLYVINYL ALCOHOL 15 ML BOTTLE EACHEYE SCH (09:58)
[2025-08-21] MEDS ORDERED: ASCORBIC ACID SYRUP 500 MG/5 ML UDC PO SCH (10:00)
[2025-08-21] MEDS: VANCOMYCIN 750 MG in IV D5W 250 ML IV SCH (10:02)
[2025-08-21] MEDS: ACETYLCYSTEINE 10% SOLN 400 MG/4 ML VIAL NEB SCH (10:03)
[2025-08-21] MEDS: LACTULOSE 10 G/15 ML UDC (PYXIS) PR ONE (10:29)
[2025-08-21 12:00] VITALS: BP 128/79; TEMP 97.5; O2SAT 100
[2025-08-21] MEDS ORDERED: LEVOFLOXACIN 250 MG /D5W 50 ML 250 MG in PREMIX 1 EA IV SCH (12:00)
[2025-08-21 16:00] VITALS: BP 107/63; TEMP 98.6; O2SAT 96
[2025-08-21] MEDS: SENNOSIDES/DOCUSATE SODIUM 1 TAB TABLET PO SCH (17:37)
[2025-08-21 20:00] VITALS: BP 118/67; TEMP 98.6; O2SAT 99
[2025-08-22] VITALS: BP 133/72; TEMP 99.3; O2SAT 97
[2025-08-22 04:00] VITALS: BP 120/69; TEMP 98.8; O2SAT 95
[2025-08-22] MEDS: LACTULOSE 10 G/15 ML UDC (PYXIS) PO PRN (05:05)
[2025-08-22 06:42] LABS: PLATELET COUNT (AUTO) 530 K/uL (150-450); RED BLOOD CELL COUNT(AUTO) 2.59 MIL/uL (4.0-5.2); RED CELL DISTRIBUTION WIDTH 14.3 % (11.5-15.0); WHITE BLOOD COUNT (AUTO) 8.0 K/uL (4.3-11.0)
[2025-08-22 06:58] LABS: ASPARTATE AMINOTRANSFERASE 14.0 U/L (15-37); CALCIUM, SERUM 9.9 mg/dL (8.5-10.1); CREATININE 1.2 mg/dL (0.6-1.3); PHOSPHORUS 4.5 mg/dL (2.5-4.9); SODIUM SERUM 143.0 mmol/L (136-145); TOTAL PROTEIN, SERUM 7.5 g/dL (6.4-8.2); UREA NITROGEN, BLOOD 36.0 mg/dL (7-18)
[2025-08-22 07:01] LABS: CREATINE KINASE, TOTAL 12.0 U/L (26-192)
[2025-08-22 08:00] VITALS: BP 120/67; TEMP 99; O2SAT 97
[2025-08-22] MEDS: MULTIVITAMINS,THERAGRAN 1 UDTAB TABLET GT SCH (08:16)
[2025-08-22] MEDS: ASCORBIC ACID 500 MG TABLET GT SCH (08:16)
[2025-08-22 12:00] VITALS: BP 124/62; TEMP 98.2; O2SAT 96
[2025-08-22 16:00] VITALS: BP 119/71; TEMP 99.1; O2SAT 97
[2025-08-22 18:18] LABS: PREGNANCY TEST URINE QUAL NEGATIVE (NEGATIVE)
[2025-08-22 18:26] LABS: CREATININE, URINE 29.9 MG/DL (30.0-125.0); URINE SODIUM, RANDOM 51.0 mmol/l (40-220); URINE TOTAL PROTEIN 90.0 mg/dL (0-11.9)
[2025-08-22 20:00] VITALS: BP 126/73; TEMP 99; O2SAT 97
[2025-08-22] MEDS: VANCOMYCIN 750 MG in IV D5W 250 ML IV SCH (21:36)
[2025-08-23] VITALS: BP 130/81; TEMP 99.1; O2SAT 97
[2025-08-23 04:00] VITALS: BP 126/80; TEMP 99.1; O2SAT 93
[2025-08-23 06:07] LABS: PTH, INTACT 9 pg/mL (15-65)
[2025-08-23 07:44] LABS: PLATELET COUNT (AUTO) 562 K/uL (150-450); RED BLOOD CELL COUNT(AUTO) 2.68 MIL/uL (4.0-5.2); RED CELL DISTRIBUTION WIDTH 14.4 % (11.5-15.0); WHITE BLOOD COUNT (AUTO) 10.5 K/uL (4.3-11.0)
[2025-08-23 08:00] VITALS: BP 126/80; TEMP 99.1; O2SAT 93
[2025-08-23 08:35] LABS: CALCIUM, SERUM 10.2 mg/dL (8.5-10.1); CREATININE 1.3 mg/dL (0.6-1.3); SODIUM SERUM 145.0 mmol/L (136-145); UREA NITROGEN, BLOOD 32.0 mg/dL (7-18)
[2025-08-23] MEDS: POTASSIUM CHLORIDE 20 MEQ POWDER PACKET NG SCH (10:00)
[2025-08-23] MEDS: VANCOMYCIN 750 MG in IV D5W 250 ML IV SCH (11:14)
[2025-08-23 11:48] LABS: OCCULT BLOOD STOOL NEGATIVE (NEGATIVE)
[2025-08-23 12:00] VITALS: BP 122/100; TEMP 208.6; TEMP 98.5; O2SAT 93
[2025-08-23] MEDS: LACTULOSE 10 G/15 ML UDC (PYXIS) PO SCH (13:59)
[2025-08-23 16:00] VITALS: BP 119/68; TEMP 98.7; O2SAT 100
[2025-08-23 20:00] VITALS: BP 114/65; TEMP 97.9; O2SAT 100
[2025-08-24] VITALS: BP 113/67; TEMP 98.2; O2SAT 100
[2025-08-24 04:00] VITALS: BP 110/69; TEMP 97.9; O2SAT 100
[2025-08-24 06:24] LABS: PLATELET COUNT (AUTO) 507 K/uL (150-450); RED BLOOD CELL COUNT(AUTO) 2.48 MIL/uL (4.0-5.2); RED CELL DISTRIBUTION WIDTH 14.8 % (11.5-15.0); WHITE BLOOD COUNT (AUTO) 9.7 K/uL (4.3-11.0)
[2025-08-24 06:41] LABS: CALCIUM, SERUM 10.1 mg/dL (8.5-10.1); CREATININE 1.0 mg/dL (0.6-1.3); SODIUM SERUM 148.0 mmol/L (136-145); UREA NITROGEN, BLOOD 28.0 mg/dL (7-18)
[2025-08-24 08:00] VITALS: BP 120/74; TEMP 97.7; O2SAT 100
[2025-08-24] MEDS ORDERED: IV D5W 1,000 ML IV PRN (08:00)
[2025-08-24 12:00] VITALS: BP 119/66; TEMP 98; O2SAT 100
[2025-08-24] MEDS ORDERED: FERR220E2 PO (12:27)
[2025-08-24] MEDS ORDERED: PIPE3.379 IV (12:27)
[2025-08-24] MEDS ORDERED: VANC1PIG IV (12:27)
[2025-08-24 16:00] VITALS: BP 115/62; TEMP 98.3; O2SAT 100
== END 2025-08-24 16:45 | DRG 130 ==
LOC: ER 08:58 → TELE1 10:53
PROVIDERS: ADMIT Nurse Practitioner Family; ATTEND Nurse Practitioner Family
PROC: 5A1955Z Respiratory Ventilation, Greater than 96 Consecutive Hours (ICD-10-PCS; principal; 2025-08-20)
PROC: 30233N1 Transfusion of Nonautologous Red Blood Cells into Peripheral Vein, Percutaneous Approach (ICD-10-PCS; 2025-08-20)
DX: J69.0 Pneumonitis due to inhalation of food and vomit (principal); J95.851 Ventilator associated pneumonia; G93.49 Other encephalopathy; L89.154 Pressure ulcer of sacral region, stage 4; R53.2 Functional quadriplegia; E44.1 Mild protein-calorie malnutrition; E86.0 Dehydration; J15.69 Pneumonia due to other Gram-negative bacteria; T17.990A Other foreign object in respiratory tract, part unspecified in causing asphyxiation, initial encounter; Z99.11 Dependence on respirator [ventilator] status; D68.59 Other primary thrombophilia; D64.9 Anemia, unspecified; J96.10 Chronic respiratory failure, unspecified whether with hypoxia or hypercapnia; N39.0 Urinary tract infection, site not specified; Y84.8 Other medical procedures as the cause of abnormal reaction of the patient, or of later complication, without mention of misadventure at the time of the procedure; E78.5 Hyperlipidemia, unspecified; E11.40 Type 2 diabetes mellitus with diabetic neuropathy, unspecified; B96.4 Proteus (mirabilis) (morganii) as the cause of diseases classified elsewhere; Z16.24 Resistance to multiple antibiotics; Z93.0 Tracheostomy status; Z93.1 Gastrostomy status; R13.10 Dysphagia, unspecified; Z79.4 Long term (current) use of insulin; N31.9 Neuromuscular dysfunction of bladder, unspecified; Z74.01 Bed confinement status; Z86.61 Personal history of infections of the central nervous system; Z86.73 Personal history of transient ischemic attack (TIA), and cerebral infarction without residual deficits; Z98.890 Other specified postprocedural states; Z79.82 Long term (current) use of aspirin; Z79.51 Long term (current) use of inhaled steroids; B96.89 Other specified bacterial agents as the cause of diseases classified elsewhere; M89.8X9 Other specified disorders of bone, unspecified site; E87.6 Hypokalemia; E88.09 Other disorders of plasma-protein metabolism, not elsewhere classified; G40.909 Epilepsy, unspecified, not intractable, without status epilepticus; I10 Essential (primary) hypertension; W44.F9XA Other object of natural or organic material, entering into or through a natural orifice, initial encounter; Y92.009 Unspecified place in unspecified non-institutional (private) residence as the place of occurrence of the external cause; J98.11 Atelectasis; I27.20 Pulmonary hypertension, unspecified; L89.621 Pressure ulcer of left heel, stage 1; L89.611 Pressure ulcer of right heel, stage 1; Y95 Nosocomial condition; N17.9 Acute kidney failure, unspecified; E86.9 Volume depletion, unspecified; M62.472 Contracture of muscle, left ankle and foot; M62.471 Contracture of muscle, right ankle and foot
CPT/HCPCS: 31720; 36415; 71045-TC; 71250-TC; 80048-TC; 80053-TC; 80076-TC; 80202-TC; 81001; 82272-TC; 82550-TC; 82570-TC; 82962-TC; 83605-TC; 83735-TC; 83880; 83970; 84100-TC; 84155; 84165; 84300-TC; 84703-TC; 85025-TC; 85027-TC; 85730-TC; 86850-TC; 87040-TC; 87081-TC; 87086-TC; 87186-TC; 94002-TC; 94003-TC; 94760-TC; 94762-TC; 94799-TC; 97110-TC; 97530-TC; 99082-TC; A4216; A4217; A4223; A6403; G0378; J1815; J1953; J1956; J2470; J2543; J3373; J3374; J7030; J7040; J7050; J7060; P9016

== ENCOUNTER 2025-09-15 22:09 | Inpatient (IN) | payer OTHER ==
[~2025-09-15] VITALS: Ht 157.5 cm; Wt 55.3 kg
[~2025-09-15 22:09] MED LIST changes: -ALBU2.5V11 IH; -ALLO100T25 PO; +COLL30OI TP; -DEXT15DR6 EACHEYE; +FERR220E2 PO; -HYDR500C PO; -MERO500P IV; -MULT-213 GT; +MULT9LIQ9 GT; -NUTR1PAC14 GT; +PIPE3.379 IV; +POLY15DR40 EACHEYE; +SENN-291 PO; -SENN8.6T19 GT; +VANC1PIG IV; -VANC500F2 IV; -ZINC220C6; -ZINC50TA65 GT
[2025-09-15 22:47] LABS: PLATELET COUNT (AUTO) 347 K/uL (150-450); RED BLOOD CELL COUNT(AUTO) 2.19 MIL/uL (4.0-5.2); RED CELL DISTRIBUTION WIDTH 15.9 % (11.5-15.0); WHITE BLOOD COUNT (AUTO) 9.6 K/uL (4.3-11.0)
[2025-09-15 22:51] LABS: CALCIUM, SERUM 10.9 mg/dL (8.5-10.1); CREATININE 3.4 mg/dL (0.6-1.3); SODIUM SERUM 135.0 mmol/L (136-145)
[2025-09-15 22:58] LABS: ASPARTATE AMINOTRANSFERASE 131.0 U/L (15-37); TOTAL PROTEIN, SERUM 8.3 g/dL (6.4-8.2)
[2025-09-15 23:07] LABS: UREA NITROGEN, BLOOD 152.0 mg/dL (7-18)
[2025-09-15 23:19] LABS: APPEARANCE,URINE TURBID (CLEAR); BLOOD, URINE 3+ Ery/uL (NEGATIVE); LEUKOCYTE ESTERASE ,URINE 3+ (NEGATIVE); NITRITE, URINE POSITIVE (NEGATIVE); UGLUCOSE TRACE mg/dL (NEGATIVE)
[2025-09-15 23:33] LABS: CALCIUM, SERUM 11.0 mg/dL (8.5-10.1); CREATININE 3.4 mg/dL (0.6-1.3); SODIUM SERUM 137.0 mmol/L (136-145)
[2025-09-15 23:34] LABS: UREA NITROGEN, BLOOD 153.0 mg/dL (7-18)
[2025-09-15] MEDS ORDERED: CEFTRIAXONE 1GM BAG (ER ONLY) 50 ML IV ONE (23:46)
[2025-09-15] MEDS: CEFTRIAXONE 1 G in IV D5W 50 ML IV ONE (23:47)
[2025-09-16 00:04] LABS: ADD URINE CULTURE YES
[2025-09-16 00:15] LABS: EOSINOPHILS % (MANUAL) 12 % (0-4); LYMPHOCYTES % (MANUAL) 19 % (16-48); MONOCYTES % (MANUAL) 3 % (0-11.0); NEUTROPHILS % (MANUAL) 66 (42-76); PLATELET ESTIMATE ADEQUATE
[2025-09-16] MEDS ORDERED: ACETAMINOPHEN 325 MG TABLET PO PRN (00:30)
[2025-09-16] MEDS ORDERED: DOSING PER PHARMACY-CEFEPIME IVPB XX PRN (00:30)
[2025-09-16] MEDS ORDERED: ZOLPIDEM TARTRATE 5 MG TABLET PO PRN (00:30)
[2025-09-16] MEDS ORDERED: ONDANSETRON HCL/PF 4 MG/2 ML VIAL IVP PRN (00:30)
[2025-09-16] MEDS: IV NS 0.9% 1,000 ML IV ONE (00:30)
[2025-09-16] MEDS: DESMOPRESSIN 20 MCG in IV NS 0.9% 50 ML IV ONE ×2 (00:30→04:56)
[2025-09-16] MEDS ORDERED: NA PHOS,M-B/NA PHOS,DI-BA 1 EA ENEMA RC PRN (01:00)
[2025-09-16] MEDS ORDERED: DEXTROSE 50%-WATER 50 ML DISP.SYRIN IV PRN (01:00)
[2025-09-16] MEDS ORDERED: BISACODYL SUPP (10 MG) 10 MG/SUPP.RECT SUPP.RECT RC PRN (01:00)
[2025-09-16 01:19] LABS: INR 1.02 (0.91-1.10)
[2025-09-16] MEDS ORDERED: CEFEPIME 1 GM in IV D5W 50 ML IV SCH (01:30)
[2025-09-16 01:45] VITALS: BP 123/79; TEMP 98.6; O2SAT 95
[2025-09-16] MEDS ORDERED: CEFEPIME 1 GM VIAL ONE (02:54)
[2025-09-16] MEDS ORDERED: DESMOPRESSIN 4 MCG/ML AMPUL ONE ×2 (02:58→03:02)
[2025-09-16 04:00] VITALS: BP 115/74; TEMP 97.5; O2SAT 97
[2025-09-16] MEDS: IV NS 0.9% 1,000 ML IV PRN (04:26)
[2025-09-16] MEDS ORDERED: DOSING PER PHARMACY-VANCOMYCIN IV XX PRN (05:00)
[2025-09-16] MEDS: CEFEPIME 1 GM in IV D5W 50 ML IV SCH (05:12)
[2025-09-16] MEDS: MIDODRINE HCL (5MG) 5 MG TABLET GT SCH (05:23)
[2025-09-16] MEDS: ALBUTEROL FS 2.5 MG/3 ML VIAL.NEB IH SCH (06:03)
[2025-09-16] MEDS: IV NS 0.9% 500 ML IV ONE (06:10)
[2025-09-16] MEDS ORDERED: VANCOMYCIN 1 GM /D5W 250 ML PB IV ONE (07:01)
[2025-09-16] MEDS: VANCOMYCIN 1 GM in IV D5W 250 ML IV ONE (07:04)
[2025-09-16 07:18] LABS: PLATELET COUNT (AUTO) 293 K/uL (150-450); RED BLOOD CELL COUNT(AUTO) 2.63 MIL/uL (4.0-5.2); RED CELL DISTRIBUTION WIDTH 15.3 % (11.5-15.0); WHITE BLOOD COUNT (AUTO) 8.1 K/uL (4.3-11.0)
[2025-09-16] MEDS: BLOOD SUGAR DIAGNOSTIC 1 EACH STRIP IN SCH (07:20)
[2025-09-16] MEDS: INSULIN REGULAR, HUMAN 100 UNIT/ML 3 ML VIAL SQ PRN (07:21)
[2025-09-16 07:48] LABS: CALCIUM, SERUM 10.2 mg/dL (8.5-10.1); CREATININE 3.2 mg/dL (0.6-1.3); PHOSPHORUS 6.6 mg/dL (2.5-4.9); SODIUM SERUM 138.0 mmol/L (136-145)
[2025-09-16 08:02] LABS: UREA NITROGEN, BLOOD 140.0 mg/dL (7-18)
[2025-09-16 08:23] VITALS: BP 119/72; TEMP 98.1; O2SAT 99
[2025-09-16] MEDS ORDERED: Medication Not On Formulary EA (Cran/Vitc/Mannose/Inulin/Brom (Uti-Stat Liquid) 30 ML) GT SCH (09:00)
[2025-09-16] MEDS: PANTOPRAZOLE 40 MG/PACK PACK GT SCH (09:09)
[2025-09-16] MEDS: CHLORHEXIDINE GLUCONATE 15 ML UDC MM SCH (09:09)
[2025-09-16] MEDS: DOCUSATE SODIUM LIQ 100 MG/10 ML UDC GT SCH (09:10)
[2025-09-16] MEDS: LEVETIRACETAM SOL (5 ML) 100 MG/ML UDC GT SCH (09:10)
[2025-09-16] MEDS: LABETALOL HCL (100MG) 100 MG TABLET GT SCH (09:11)
[2025-09-16] MEDS: BROMOCRIPTINE MESYLATE (2.5MG) 2.5 MG TABLET GT SCH (09:11)
[2025-09-16] MEDS: ASCORBIC ACID 500 MG TABLET GT SCH (09:11)
[2025-09-16] MEDS: POLYVINYL ALCOHOL 15 ML BOTTLE EACHEYE SCH (09:15)
[2025-09-16] MEDS: FERROUS SULFATE UDC 300 MG/5 ML UDC GT SCH (09:20)
[2025-09-16] MEDS: PROSOURCE / PROSTAT (PYXIS) 30 ML UDC GT SCH (09:20)
[2025-09-16] MEDS ORDERED: FERR325T24 GT (09:35)
[2025-09-16] MEDS ORDERED: PANT40SU2 GT (09:35)
[2025-09-16] MEDS: IV NS 0.9% 1,000 ML IV SCH (11:01)
[2025-09-16 12:00] VITALS: BP 108/68; TEMP 98.1; O2SAT 100
[2025-09-16] MEDS: DAKINS QUARTER STRENGTH (0.125%) 480 ML BOTTLE TOP SCH (12:03)
[2025-09-16 12:54] LABS: CREATININE, URINE 23.2 MG/DL (30.0-125.0); URINE SODIUM, RANDOM 15.0 mmol/l (40-220)
[2025-09-16 13:07] LABS: URINE TOTAL PROTEIN 360.0 mg/dL (0-11.9)
[2025-09-16 14:18] LABS: CALCIUM, SERUM 9.9 mg/dL (8.5-10.1); CREATININE 3.2 mg/dL (0.6-1.3); SODIUM SERUM 137.0 mmol/L (136-145)
[2025-09-16] MEDS: GLUCERNA 1.2 1,000 ML BOTTLE NG PRN (14:37)
[2025-09-16 14:45] LABS: UREA NITROGEN, BLOOD 144.0 mg/dL (7-18)
[2025-09-16 16:21] VITALS: BP 141/80; TEMP 97.5; O2SAT 99
[2025-09-16] MEDS: TRAMADOL HCL 50 MG TABLET GT PRN (17:31)
[2025-09-16] MEDS: SENNOSIDES/DOCUSATE SODIUM 1 UDTAB TABLET GT SCH (17:58)
[2025-09-16 20:00] VITALS: BP 138/75; TEMP 98.1; O2SAT 99
[2025-09-16 21:08] LABS: OCCULT BLOOD STOOL NEGATIVE (NEGATIVE)
[2025-09-16] MEDS: ATORVASTATIN 40 MG TABLET GT SCH (21:34)
[2025-09-16] MEDS: INSULIN GLARGINE, 100 UNIT/ML CARTRIDGE SQ SCH (21:59)
[2025-09-17] VITALS (7 sets, daily range): BP systolic 98–151; BP diastolic 72–83; TEMP 97–98.2; O2SAT 99–100
[2025-09-17 00:40] LABS: PREGNANCY TEST URINE QUAL NEGATIVE (NEGATIVE)
[2025-09-17 06:46] LABS: PLATELET COUNT (AUTO) 288 K/uL (150-450); RED BLOOD CELL COUNT(AUTO) 2.48 MIL/uL (4.0-5.2); RED CELL DISTRIBUTION WIDTH 15.0 % (11.5-15.0); WHITE BLOOD COUNT (AUTO) 7.7 K/uL (4.3-11.0)
[2025-09-17 07:10] LABS: ASPARTATE AMINOTRANSFERASE 141.0 U/L (15-37); CALCIUM, SERUM 9.9 mg/dL (8.5-10.1); CREATININE 2.9 mg/dL (0.6-1.3); PHOSPHORUS 6.3 mg/dL (2.5-4.9); SODIUM SERUM 139.0 mmol/L (136-145); TOTAL PROTEIN, SERUM 7.6 g/dL (6.4-8.2)
[2025-09-17 07:12] LABS: CREATINE KINASE, TOTAL 15.0 U/L (26-192); UREA NITROGEN, BLOOD 122.0 mg/dL (7-18)
[2025-09-17] MEDS: ACETYLCYSTEINE 10% SOLN 400 MG/4 ML VIAL NEB SCH (12:43)
[2025-09-17] MEDS: SENNOSIDES/DOCUSATE SODIUM 1 TAB TABLET GT SCH (17:30)
[2025-09-17] MEDS: VANCOMYCIN 750 MG in IV D5W 250 ML IV SCH (18:47)
[2025-09-17] MEDS: ALBUTEROL FS 2.5 MG/3 ML VIAL.NEB NEB SCH (20:03)
[2025-09-18] VITALS: BP_SYST 129; BP_SYST 155; BP_DIAS 70; BP_DIAS 73; TEMP 97.7; TEMP 97.9; O2SAT 100
[2025-09-18 04:00] VITALS: BP 131/73; TEMP 98.4; O2SAT 100
[2025-09-18 05:08] LABS: PTH, INTACT 14 pg/mL (15-65)
[2025-09-18 06:25] LABS: CALCIUM, SERUM 9.9 mg/dL (8.5-10.1); CREATININE 2.7 mg/dL (0.6-1.3); SODIUM SERUM 141.0 mmol/L (136-145)
[2025-09-18 06:26] LABS: PLATELET COUNT (AUTO) 297 K/uL (150-450); RED BLOOD CELL COUNT(AUTO) 2.59 MIL/uL (4.0-5.2); RED CELL DISTRIBUTION WIDTH 15.1 % (11.5-15.0); WHITE BLOOD COUNT (AUTO) 6.9 K/uL (4.3-11.0)
[2025-09-18 06:37] LABS: UREA NITROGEN, BLOOD 108.0 mg/dL (7-18)
[2025-09-18 06:51] LABS: PHOSPHORUS 5.6 mg/dL (2.5-4.9)
[2025-09-18 08:00] VITALS: BP 144/77; TEMP 97.9; O2SAT 100
[2025-09-18 11:30] VITALS: BP 148/78; TEMP 97.2; O2SAT 100
[2025-09-18] MEDS: CEFEPIME 2 GM in IV D5W 100 ML IV SCH (13:02)
[2025-09-18 13:13] LABS: OCCULT BLOOD STOOL NEGATIVE (NEGATIVE)
[2025-09-18 16:00] VITALS: BP 148/84; TEMP 97.5; O2SAT 100
[2025-09-18 20:00] VITALS: BP 141/77; TEMP 98.4; O2SAT 97
[2025-09-19] VITALS: BP 140/78; TEMP 98.6; O2SAT 95
[2025-09-19 04:00] VITALS: BP 129/71; TEMP 98.2; O2SAT 95
[2025-09-19 04:15] VITALS: BP 129/71; TEMP 98.2; O2SAT 95
[2025-09-19 06:51] LABS: PLATELET COUNT (AUTO) 315 K/uL (150-450); RED BLOOD CELL COUNT(AUTO) 2.52 MIL/uL (4.0-5.2); RED CELL DISTRIBUTION WIDTH 15.1 % (11.5-15.0); WHITE BLOOD COUNT (AUTO) 7.2 K/uL (4.3-11.0)
[2025-09-19 07:08] LABS: CALCIUM, SERUM 9.9 mg/dL (8.5-10.1); CREATININE 2.4 mg/dL (0.6-1.3); SODIUM SERUM 144.0 mmol/L (136-145)
[2025-09-19 07:17] LABS: UREA NITROGEN, BLOOD 89.0 mg/dL (7-18)
[2025-09-19 08:31] VITALS: BP 144/74; TEMP 98.1; O2SAT 98
[2025-09-19 15:00] VITALS: BP 136/67; TEMP 97.9; O2SAT 100
[2025-09-19 20:00] VITALS: BP_SYST 129; BP_SYST 133; BP_DIAS 70; BP_DIAS 71; TEMP 99.1; O2SAT 100
[2025-09-19] MEDS: MEROPENEM 500 MG in IV NS 0.9% 50 ML IV SCH (21:05)
[2025-09-20] VITALS: BP 133/71; TEMP 99.1; O2SAT 100
[2025-09-20 00:08] VITALS: BP 133/71; TEMP 99.1; O2SAT 100
[2025-09-20 07:06] LABS: PLATELET COUNT (AUTO) 322 K/uL (150-450); RED BLOOD CELL COUNT(AUTO) 2.49 MIL/uL (4.0-5.2); RED CELL DISTRIBUTION WIDTH 15.1 % (11.5-15.0); WHITE BLOOD COUNT (AUTO) 7.7 K/uL (4.3-11.0)
[2025-09-20 07:11] LABS: CALCIUM, SERUM 9.7 mg/dL (8.5-10.1); CREATININE 2.3 mg/dL (0.6-1.3); SODIUM SERUM 145.0 mmol/L (136-145)
[2025-09-20 07:18] LABS: PHOSPHORUS 4.9 mg/dL (2.5-4.9)
[2025-09-20 07:21] LABS: UREA NITROGEN, BLOOD 85.0 mg/dL (7-18)
[2025-09-20 08:00] VITALS: BP 142/79; TEMP 98.4; O2SAT 100
[2025-09-20 11:30] VITALS: BP 130/68; TEMP 98.4; O2SAT 100
[2025-09-20 16:00] VITALS: BP 152/84; TEMP 97.5; O2SAT 100
[2025-09-20] MEDS: IV NS 0.9% 1,000 ML IV PRN (18:15)
[2025-09-20 22:38] VITALS: BP 136/70; TEMP 97.7; O2SAT 100
[2025-09-21] VITALS: BP 148/79; TEMP 98.1; O2SAT 100
[2025-09-21 04:49] VITALS: BP 157/83; TEMP 98.2; O2SAT 100
[2025-09-21 07:46] LABS: PLATELET COUNT (AUTO) 330 K/uL (150-450); RED BLOOD CELL COUNT(AUTO) 2.60 MIL/uL (4.0-5.2); RED CELL DISTRIBUTION WIDTH 15.7 % (11.5-15.0); WHITE BLOOD COUNT (AUTO) 8.8 K/uL (4.3-11.0)
[2025-09-21 07:54] LABS: CALCIUM, SERUM 9.3 mg/dL (8.5-10.1); CREATININE 2.1 mg/dL (0.6-1.3); SODIUM SERUM 148.0 mmol/L (136-145); UREA NITROGEN, BLOOD 74.0 mg/dL (7-18)
[2025-09-21 08:00] VITALS: BP 150/85; TEMP 97.5; O2SAT 99
[2025-09-21 08:05] LABS: PHOSPHORUS 5.1 mg/dL (2.5-4.9)
[2025-09-21] MEDS: IV D5W 1,000 ML IV PRN (08:14)
[2025-09-21] MEDS: Z GUARD REMEDY 4 OZ OINT TP PRN (08:39)
[2025-09-21 11:00] VITALS: BP 142/82; TEMP 97.7; O2SAT 98
[2025-09-21 15:00] VITALS: BP 156/83; TEMP 97.2; O2SAT 100
[2025-09-21 20:11] VITALS: BP 147/79; TEMP 97.9; O2SAT 100
[2025-09-22 00:15] VITALS: BP 149/83; TEMP 97.3; O2SAT 100
[2025-09-22 04:00] VITALS: BP 155/82; TEMP 97.3; O2SAT 100
[2025-09-22 07:53] LABS: PLATELET COUNT (AUTO) 344 K/uL (150-450); RED BLOOD CELL COUNT(AUTO) 2.62 MIL/uL (4.0-5.2); RED CELL DISTRIBUTION WIDTH 15.5 % (11.5-15.0); WHITE BLOOD COUNT (AUTO) 9.6 K/uL (4.3-11.0)
[2025-09-22 08:14] LABS: SODIUM SERUM 141.0 mmol/L (136-145)
[2025-09-22 08:30] LABS: CALCIUM, SERUM 9.5 mg/dL (8.5-10.1); CREATININE 2.2 mg/dL (0.6-1.3); PHOSPHORUS 5.1 mg/dL (2.5-4.9); UREA NITROGEN, BLOOD 69.0 mg/dL (7-18)
[2025-09-22 08:45] VITALS: BP 150/84; TEMP 97.7; O2SAT 100
[2025-09-22 11:53] VITALS: BP 139/79; TEMP 97.5; O2SAT 100
[2025-09-22 16:08] VITALS: BP 146/75; TEMP 97.7; O2SAT 100
[2025-09-22 20:00] VITALS: BP 158/82; TEMP 100; TEMP 97.3; O2SAT 100
[2025-09-23] VITALS: BP 147/81; TEMP 97.7; O2SAT 100
[2025-09-23 04:00] VITALS: BP 142/83; TEMP 97.5; O2SAT 99
[2025-09-23 07:04] LABS: PLATELET COUNT (AUTO) 308 K/uL (150-450); RED BLOOD CELL COUNT(AUTO) 2.49 MIL/uL (4.0-5.2); RED CELL DISTRIBUTION WIDTH 15.4 % (11.5-15.0); WHITE BLOOD COUNT (AUTO) 11.4 K/uL (4.3-11.0)
[2025-09-23 07:18] LABS: CALCIUM, SERUM 9.3 mg/dL (8.5-10.1); CREATININE 2.0 mg/dL (0.6-1.3); PHOSPHORUS 5.1 mg/dL (2.5-4.9); SODIUM SERUM 137.0 mmol/L (136-145); UREA NITROGEN, BLOOD 65.0 mg/dL (7-18)
[2025-09-23 08:00] VITALS: BP 151/84; TEMP 97.5; O2SAT 100
[2025-09-23 10:08] LABS: LYMPHOCYTES % (MANUAL) 24 % (16-48); MONOCYTES % (MANUAL) 2 % (0-11.0); NEUTROPHILS % (MANUAL) 74 (42-76); PLATELET ESTIMATE ADEQUATE
[2025-09-23 20:00] VITALS: BP 144/82; TEMP 97.9; O2SAT 100
[2025-09-24] VITALS: BP_SYST 129; BP_DIAS 71; BP_DIAS 87; TEMP 97.2; O2SAT 100
[2025-09-24 04:00] VITALS: BP 135/81; TEMP 99.3; O2SAT 100
[2025-09-24 07:35] LABS: PLATELET COUNT (AUTO) 373 K/uL (150-450); RED BLOOD CELL COUNT(AUTO) 2.79 MIL/uL (4.0-5.2); RED CELL DISTRIBUTION WIDTH 15.7 % (11.5-15.0); WHITE BLOOD COUNT (AUTO) 7.2 K/uL (4.3-11.0)
[2025-09-24 08:00] VITALS: BP 147/82; TEMP 97.9; O2SAT 100
[2025-09-24 08:26] LABS: CALCIUM, SERUM 9.7 mg/dL (8.5-10.1); CREATININE 2.0 mg/dL (0.6-1.3); PHOSPHORUS 5.4 mg/dL (2.5-4.9); SODIUM SERUM 143.0 mmol/L (136-145); UREA NITROGEN, BLOOD 67.0 mg/dL (7-18)
[2025-09-24 11:00] VITALS: BP 149/84; TEMP 98.1; O2SAT 100
[2025-09-24] MEDS ORDERED: ERTA1VIA4 IJ (13:07)
[2025-09-24] MEDS ORDERED: ASCO500T21 GT (13:07)
[2025-09-24 16:00] VITALS: BP 138/84; TEMP 97.9; O2SAT 100
[2025-09-24] MEDS ORDERED: FERROUS SULFATE UDC 300 MG/5 ML UDC GT SCH (17:25)
[2025-09-24 17:31] VITALS: BP 138/84
== END 2025-09-24 19:50 | DRG 951 ==
LOC: ER 22:10 → TELE 09-16 00:46
PROVIDERS: ADMIT Registered Nurse Psychiatric/Mental Health; ATTEND Nurse Practitioner Acute Care
PROC: 5A1955Z Respiratory Ventilation, Greater than 96 Consecutive Hours (ICD-10-PCS; principal; 2025-09-16)
PROC: 30233N1 Transfusion of Nonautologous Red Blood Cells into Peripheral Vein, Percutaneous Approach (ICD-10-PCS; 2025-09-16)
PROC: 0KBN0ZZ Excision of Right Hip Muscle, Open Approach (ICD-10-PCS; 2025-09-17)
PROC: 0KBP0ZZ Excision of Left Hip Muscle, Open Approach (ICD-10-PCS; 2025-09-17)
DX: T83.511A Infection and inflammatory reaction due to indwelling urethral catheter, initial encounter (principal); Z99.11 Dependence on respirator [ventilator] status; G93.49 Other encephalopathy; J15.69 Pneumonia due to other Gram-negative bacteria; E44.0 Moderate protein-calorie malnutrition; L89.154 Pressure ulcer of sacral region, stage 4; D69.1 Qualitative platelet defects; I27.20 Pulmonary hypertension, unspecified; D62 Acute posthemorrhagic anemia; E88.09 Other disorders of plasma-protein metabolism, not elsewhere classified; N30.91 Cystitis, unspecified with hematuria; R13.10 Dysphagia, unspecified; R31.0 Gross hematuria; N17.9 Acute kidney failure, unspecified; J96.10 Chronic respiratory failure, unspecified whether with hypoxia or hypercapnia; D68.59 Other primary thrombophilia; Z86.69 Personal history of other diseases of the nervous system and sense organs; Z93.1 Gastrostomy status; Z93.0 Tracheostomy status; N31.9 Neuromuscular dysfunction of bladder, unspecified; E11.65 Type 2 diabetes mellitus with hyperglycemia; E78.5 Hyperlipidemia, unspecified; Z98.890 Other specified postprocedural states; Z79.4 Long term (current) use of insulin; Z79.899 Other long term (current) drug therapy; Z79.82 Long term (current) use of aspirin; Z79.51 Long term (current) use of inhaled steroids; Z86.61 Personal history of infections of the central nervous system; Z86.73 Personal history of transient ischemic attack (TIA), and cerebral infarction without residual deficits; Z74.01 Bed confinement status; Z87.440 Personal history of urinary (tract) infections; Z87.891 Personal history of nicotine dependence; Y84.6 Urinary catheterization as the cause of abnormal reaction of the patient, or of later complication, without mention of misadventure at the time of the procedure; Y92.129 Unspecified place in nursing home as the place of occurrence of the external cause; Y95 Nosocomial condition; M89.8X9 Other specified disorders of bone, unspecified site; J98.4 Other disorders of lung; Z16.12 Extended spectrum beta lactamase (ESBL) resistance; B96.20 Unspecified Escherichia coli [E. coli] as the cause of diseases classified elsewhere; G40.909 Epilepsy, unspecified, not intractable, without status epilepticus; I10 Essential (primary) hypertension; Z87.01 Personal history of pneumonia (recurrent); J98.11 Atelectasis; B95.2 Enterococcus as the cause of diseases classified elsewhere
CPT/HCPCS: 31720; 36415; 71045-TC; 71250-TC; 76705-TC; 76770-TC; 80048-TC; 80053-TC; 80202-TC; 81001; 82272-TC; 82550-TC; 82570-TC; 82962-TC; 83735-TC; 83970; 84100-TC; 84155; 84165; 84300-TC; 84703-TC; 85025-TC; 85027-TC; 85610-TC; 86140-TC; 86850-TC; 87040-TC; 87081-TC; 87086-TC; 87186-TC; 94002-TC; 94003-TC; 94760-TC; 94762-TC; 94799-TC; 99082-TC; A4223; A4623; A6253; A6403; G0378; J0692; J0696; J1815; J1953; J2185; J2597; J3373; J3374; J7030; J7040; J7050; J7060; J7070; P9016

== ENCOUNTER 2025-10-18 12:32 | Inpatient (IN) | payer OTHER ==
[~2025-10-18] VITALS: Ht 165.1 cm; Wt 68.9 kg
[~2025-10-18 12:32] MED LIST changes: -ASCO500L2 GT; +ASCO500T21 GT; +ERTA1VIA4 IJ; -FERR220E2 PO; +FERR325T24 GT; +PANT40SU2 GT; -PIPE3.379 IV; -VANC1PIG IV
[2025-10-18] MEDS ORDERED: FERR220S2 GT (13:06)
[2025-10-18] MEDS ORDERED: ASCO500L2 GT (13:06)
[2025-10-18 13:18] LABS: PLATELET COUNT (AUTO) 286 K/uL (150-450); RED BLOOD CELL COUNT(AUTO) 2.30 MIL/uL (4.0-5.2); RED CELL DISTRIBUTION WIDTH 15.6 % (11.5-15.0)
[2025-10-18 13:21] LABS: WHITE BLOOD COUNT (AUTO) 30.2 K/uL (4.3-11.0)
[2025-10-18 13:28] LABS: ASPARTATE AMINOTRANSFERASE 29.0 U/L (15-37); CALCIUM, SERUM 11.7 mg/dL (8.5-10.1); CREATININE 3.5 mg/dL (0.6-1.3); SODIUM SERUM 132.0 mmol/L (136-145); TOTAL PROTEIN, SERUM 8.2 g/dL (6.4-8.2)
[2025-10-18 13:30] LABS: LACTIC ACID 0.9 mmol/L (0.4-2.0)
[2025-10-18 13:33] LABS: INR 1.03 (0.91-1.10)
[2025-10-18 13:41] LABS: UREA NITROGEN, BLOOD 218.0 mg/dL (7-18)
[2025-10-18 13:57] LABS: LYMPHOCYTES % (MANUAL) 8 % (16-48); MONOCYTES % (MANUAL) 1 % (0-11.0); MYELOCYTES % 1 % (0-0); NEUTROPHILS % (MANUAL) 90 (42-76); PLATELET ESTIMATE ADEQUATE
[2025-10-18] MEDS: VANCOMYCIN 1 GM in IV D5W 250 ML IV ONE (14:30)
[2025-10-18] MEDS: IV NS 0.9% 1,000 ML BAG IV ONE (15:24)
[2025-10-18] MEDS: PIPERACILLIN /TAZOBACTAM 3.375 G in IV D5W 50 ML IV ONE (15:25)
[2025-10-18 16:16] LABS: APPEARANCE,URINE CLOUDY (CLEAR); UGLUCOSE NEGATIVE (NEGATIVE)
[2025-10-18 16:18] LABS: BLOOD, URINE 3+ Ery/uL (NEGATIVE)
[2025-10-18 16:20] LABS: LEUKOCYTE ESTERASE ,URINE 3+ (NEGATIVE); NITRITE, URINE NEGATIVE (NEGATIVE)
[2025-10-18 16:41] LABS: ADD URINE CULTURE YES; SQUAMOUS EPITHELIAL CELL,UR Few /HPF (None Seen)
[2025-10-18 16:42] LABS: URINE AMORPHOUS URATE Many /HPF (None Seen)
[2025-10-18 16:45] LABS: TRIPLE PHOSPHATE CRYSTAL,UR Moderate /HPF (None Seen)
[2025-10-18] MEDS ORDERED: DOSING PER PHARMACY-VANCOMYCIN IV XX PRN (18:00)
[2025-10-18] MEDS ORDERED: TRAMADOL HCL 50 MG TABLET GT PRN (18:00)
[2025-10-18] MEDS ORDERED: ONDANSETRON HCL/PF 4 MG/2 ML VIAL IVP PRN (18:00)
[2025-10-18] MEDS ORDERED: DEXTROSE 50%-WATER 50 ML DISP.SYRIN IV PRN (18:00)
[2025-10-18 18:25] VITALS: BP 122/73; TEMP 97.5; O2SAT 100
[2025-10-18] MEDS: BROMOCRIPTINE MESYLATE (2.5MG) 2.5 MG TABLET GT SCH (18:57)
[2025-10-18] MEDS: INSULIN REGULAR, HUMAN 100 UNIT/ML 3 ML VIAL SQ PRN (18:57)
[2025-10-18] MEDS: GLUCERNA 1.2 1,000 ML BOTTLE NG PRN (18:57)
[2025-10-18] MEDS: LABETALOL HCL (100MG) 100 MG TABLET GT SCH (18:58)
[2025-10-18] MEDS: CHLORHEXIDINE GLUCONATE 15 ML UDC MM SCH (18:58)
[2025-10-18 20:00] VITALS: BP 116/71; TEMP 97.5; O2SAT 99
[2025-10-18] MEDS: ALBUTEROL FS 2.5 MG/3 ML VIAL.NEB NEB SCH (20:19)
[2025-10-18] MEDS: LEVETIRACETAM SOL (5 ML) 100 MG/ML UDC GT SCH (20:44)
[2025-10-18] MEDS: MIDODRINE HCL (5MG) 5 MG TABLET GT SCH (20:45)
[2025-10-18] MEDS: ENOXAPARIN SODIUM 30 MG/0.3 ML DISP.SYRIN SQ SCH (20:47)
[2025-10-18] MEDS: MEROPENEM 500 MG in IV NS 0.9% 50 ML IV SCH (21:30)
[2025-10-18] MEDS: IV NS 0.9% 1,000 ML IV PRN (21:34)
[2025-10-18] MEDS: ATORVASTATIN 40 MG TABLET GT SCH (22:11)
[2025-10-18] MEDS: ASPIRIN 81 MG TAB.CHEW GT SCH (22:11)
[2025-10-18] MEDS: INSULIN GLARGINE, 100 UNIT/ML CARTRIDGE SQ SCH (22:35)
[2025-10-18] MEDS: BLOOD SUGAR DIAGNOSTIC 1 EACH STRIP IN SCH (22:36)
[2025-10-19 07:44] LABS: PLATELET COUNT (AUTO) 273 K/uL (150-450); RED BLOOD CELL COUNT(AUTO) 2.30 MIL/uL (4.0-5.2); RED CELL DISTRIBUTION WIDTH 15.7 % (11.5-15.0); WHITE BLOOD COUNT (AUTO) 21.3 K/uL (4.3-11.0)
[2025-10-19 07:59] LABS: CALCIUM, SERUM 10.1 mg/dL (8.5-10.1); CREATININE 3.4 mg/dL (0.6-1.3); PHOSPHORUS 3.4 mg/dL (2.5-4.9); SODIUM SERUM 134.0 mmol/L (136-145)
[2025-10-19 08:00] VITALS: BP 127/75; TEMP 98.7; O2SAT 100
[2025-10-19] MEDS: PANTOPRAZOLE 40 MG/PACK PACK GT SCH (08:12)
[2025-10-19] MEDS: FERROUS SULFATE UDC 300 MG/5 ML UDC GT SCH (08:13)
[2025-10-19] MEDS: MULTIVITAMINS,THERAGRAN 1 UDTAB TABLET GT SCH (08:17)
[2025-10-19] MEDS: ASCORBIC ACID 500 MG TABLET GT SCH (08:17)
[2025-10-19] MEDS: PROSOURCE / PROSTAT (PYXIS) 30 ML UDC GT SCH (08:18)
[2025-10-19 08:43] LABS: UREA NITROGEN, BLOOD 161.0 mg/dL (7-18)
[2025-10-19 09:00] VITALS: BP 127/75; TEMP 98.7; O2SAT 100
[2025-10-19] MEDS ORDERED: DEXTROSE 50%-WATER 50 ML DISP.SYRIN IV PRN (10:00)
[2025-10-19] MEDS ORDERED: DOSING PER PHARMACY-VANCOMYCIN IV XX PRN (10:30)
[2025-10-19 13:00] VITALS: BP 135/86; TEMP 97.9; O2SAT 100
[2025-10-19] MEDS: INSULIN REGULAR, HUMAN 100 UNIT/ML 3 ML VIAL SQ PRN (13:45)
[2025-10-19] MEDS: BLOOD SUGAR DIAGNOSTIC 1 EACH STRIP IN SCH (13:45)
[2025-10-19] MEDS: POTASSIUM CHLORIDE 20 MEQ POWDER PACKET GT ONE (15:11)
[2025-10-19] MEDS: ACETAMINOPHEN 325 MG TABLET PO PRN (16:03)
[2025-10-19 17:00] VITALS: BP 139/76; TEMP 97.9; O2SAT 100
[2025-10-19] MEDS: SENNOSIDES/DOCUSATE SODIUM 1 TAB TABLET GT SCH (18:31)
[2025-10-19 20:00] VITALS: BP 127/77; TEMP 97.9; O2SAT 100
[2025-10-20] VITALS (11 sets, daily range): BP systolic 126–145; BP diastolic 72–76; TEMP 97.3–98.6; O2SAT 97–100
[2025-10-20 08:26] LABS: ASPARTATE AMINOTRANSFERASE 18.0 U/L (15-37); CALCIUM, SERUM 10.2 mg/dL (8.5-10.1); CREATININE 3.2 mg/dL (0.6-1.3); PHOSPHORUS 4.0 mg/dL (2.5-4.9); SODIUM SERUM 138.0 mmol/L (136-145); TOTAL PROTEIN, SERUM 7.5 g/dL (6.4-8.2)
[2025-10-20 08:28] LABS: UREA NITROGEN, BLOOD 165.0 mg/dL (7-18)
[2025-10-20 08:36] LABS: ERYTHROCYTE SEDIMENTATION RATE 30 MM/HR (0-20)
[2025-10-20 08:39] LABS: PLATELET COUNT (AUTO) 288 K/uL (150-450); RED BLOOD CELL COUNT(AUTO) 2.14 MIL/uL (4.0-5.2); RED CELL DISTRIBUTION WIDTH 15.7 % (11.5-15.0); WHITE BLOOD COUNT (AUTO) 10.4 K/uL (4.3-11.0)
[2025-10-20 08:46] LABS: CREATINE KINASE, TOTAL 7.0 U/L (26-192)
[2025-10-20 09:02] LABS: IRON, SERUM 127.0 ug/dl (50-175)
[2025-10-20] MEDS: DAKINS QUARTER STRENGTH (0.125%) 480 ML BOTTLE TOP SCH (11:37)
[2025-10-20 13:51] LABS: EOSINOPHILS % (MANUAL) 3 % (0-4); LYMPHOCYTES % (MANUAL) 11 % (16-48); MONOCYTES % (MANUAL) 5 % (0-11.0); NEUTROPHILS % (MANUAL) 81 (42-76); PLATELET ESTIMATE ADEQUATE
[2025-10-20 14:51] LABS: ABG BASE EXCESS -11.9 mmol/L (-2.0-3.0); ABG OXYGEN SATURATION 98.8 % (94.0-98.0); ABG PCO2 28.2 mmHg (32.0-45.0); ABG PH 7.296 (7.350-7.450); ABG PO2 175.8 mmHg (83.0-108.0); ABG TOTAL HEMOGLOBIN 8.1 G/dL (12.0-16.0); FRACTIONATED INSPIRED OXYGEN 40.0 %; PEEP,BG 5 cm H2O; SET RATE, BG 18.0; SITE, ABG RIGHT RADIAL; VT, ABG 400 mL
[2025-10-20] MEDS: VANCOMYCIN 1 GM in IV D5W 250ml IV SCH (15:45)
[2025-10-20 16:28] LABS: APPEARANCE,URINE SLIGHTLY CLOUDY (CLEAR); BLOOD, URINE 2+ Ery/uL (NEGATIVE); LEUKOCYTE ESTERASE ,URINE 2+ (NEGATIVE); NITRITE, URINE NEGATIVE (NEGATIVE); UGLUCOSE TRACE mg/dL (NEGATIVE)
[2025-10-20 16:32] LABS: PREGNANCY TEST URINE QUAL NEGATIVE (NEGATIVE)
[2025-10-20 16:38] LABS: CREATININE, URINE < 13.0 MG/DL (30.0-125.0); URINE SODIUM, RANDOM 52 mmol/l (40-220); URINE TOTAL PROTEIN 70.1 mg/dL (0-11.9)
[2025-10-20 16:57] LABS: ADD URINE CULTURE YES; CALCIUM OXALATE CRYSTALS,UR Many /HPF (None Seen); SQUAMOUS EPITHELIAL CELL,UR Few /HPF (None Seen)
[2025-10-20 17:05] LABS: EOSINOPHIL,URINE Rare
[2025-10-20 17:26] LABS: PLATELET COUNT (AUTO) 243 K/uL (150-450); RED BLOOD CELL COUNT(AUTO) 2.70 MIL/uL (4.0-5.2); RED CELL DISTRIBUTION WIDTH 15.5 % (11.5-15.0); WHITE BLOOD COUNT (AUTO) 12.1 K/uL (4.3-11.0)
[2025-10-20 17:52] LABS: ASPARTATE AMINOTRANSFERASE 16.0 U/L (15-37); CALCIUM, SERUM 9.7 mg/dL (8.5-10.1); CREATININE 3.1 mg/dL (0.6-1.3); SODIUM SERUM 140.0 mmol/L (136-145); TOTAL PROTEIN, SERUM 6.9 g/dL (6.4-8.2)
[2025-10-20 17:57] LABS: LACTIC ACID 0.7 mmol/L (0.4-2.0)
[2025-10-20 18:17] LABS: UREA NITROGEN, BLOOD 160.0 mg/dL (7-18)
[2025-10-20 18:26] LABS: EOSINOPHILS % (MANUAL) 1 % (0-4); LYMPHOCYTES % (MANUAL) 16 % (16-48); MONOCYTES % (MANUAL) 7 % (0-11.0); NEUTROPHILS % (MANUAL) 76 (42-76); PLATELET ESTIMATE ADEQUATE
[2025-10-21] VITALS: BP 130/72; TEMP 97.9; O2SAT 100
[2025-10-21 04:00] VITALS: BP 140/75; TEMP 97.5; O2SAT 100
[2025-10-21] MEDS: BLOOD SUGAR DIAGNOSTIC 1 EACH STRIP IN SCH (06:02)
[2025-10-21 08:00] VITALS: BP 144/83; TEMP 98.2; O2SAT 100
[2025-10-21 08:11] LABS: PLATELET COUNT (AUTO) 254 K/uL (150-450); RED BLOOD CELL COUNT(AUTO) 2.88 MIL/uL (4.0-5.2); RED CELL DISTRIBUTION WIDTH 15.4 % (11.5-15.0); WHITE BLOOD COUNT (AUTO) 8.2 K/uL (4.3-11.0)
[2025-10-21 08:12] LABS: COMPLEMENT C3, SERUM 179 mg/dL (82-167); COMPLEMENT C4, SERUM 25 mg/dL (12-38)
[2025-10-21 09:11] LABS: ASPARTATE AMINOTRANSFERASE 19.0 U/L (15-37); CALCIUM, SERUM 9.6 mg/dL (8.5-10.1); CREATININE 3.1 mg/dL (0.6-1.3); PHOSPHORUS 3.9 mg/dL (2.5-4.9); SODIUM SERUM 141.0 mmol/L (136-145); TOTAL PROTEIN, SERUM 7.0 g/dL (6.4-8.2)
[2025-10-21 09:12] LABS: UREA NITROGEN, BLOOD 158.0 mg/dL (7-18)
[2025-10-21 11:12] LABS: PTH, INTACT 33 pg/mL (15-65)
[2025-10-21 12:00] VITALS: BP 144/79; TEMP 98.2; O2SAT 98
[2025-10-21 13:08] LABS: *ANA ANTI-CENTROMERE B AB <0.2 AI (0.0-0.9); *ANA ANTI-DNA(DS) AB, QN 3 IU/mL (0-9); *ANA ANTI-JO-1 <0.2 AI (0.0-0.9); *ANA ANTICHROMATIN ANTIBODY <0.2 AI (0.0-0.9); *ANA RNP ANTIBODIES <0.2 AI (0.0-0.9); *ANA SJOGREN'S ANTI-SS-A 0.4 AI (0.0-0.9); *ANA SJOGREN'S ANTI-SS-B <0.2 AI (0.0-0.9); *ANAANTI-SCLERODERMA-70 AB <0.2 AI (0.0-0.9); *ANASMITH AB <0.2 AI (0.0-0.9)
[2025-10-21 16:00] VITALS: BP 145/73; TEMP 99; O2SAT 98
[2025-10-21] MEDS: GLUCERNA 1.2 1,000 ML BOTTLE NG PRN (17:51)
[2025-10-21 20:00] VITALS: BP 156/84; TEMP 97.7; O2SAT 100
[2025-10-22] VITALS: BP 144/79; TEMP 97.9; O2SAT 100
[2025-10-22 04:00] VITALS: BP 150/87; TEMP 98.2; O2SAT 100
[2025-10-22 06:10] LABS: PLATELET COUNT (AUTO) 259 K/uL (150-450); RED BLOOD CELL COUNT(AUTO) 2.77 MIL/uL (4.0-5.2); RED CELL DISTRIBUTION WIDTH 15.4 % (11.5-15.0); WHITE BLOOD COUNT (AUTO) 7.8 K/uL (4.3-11.0)
[2025-10-22 06:22] LABS: CALCIUM, SERUM 9.9 mg/dL (8.5-10.1); CREATININE 2.9 mg/dL (0.6-1.3); SODIUM SERUM 138.0 mmol/L (136-145)
[2025-10-22 06:23] LABS: UREA NITROGEN, BLOOD 153.0 mg/dL (7-18)
[2025-10-22 08:00] VITALS: BP 150/85; TEMP 98; O2SAT 100
[2025-10-22 08:11] LABS: HEPATITIS B CORE AB, IgM Negative (Negative); HEPATITIS B CORE AB, TOTAL Negative (Negative)
[2025-10-22 09:07] LABS: *ANCA ATYPICAL p-ANCA <1:20 titer (Neg:<1:20); *ANCA CYTOPLASMIC (C-ANCA) <1:20 titer (Neg:<1:20); *ANCA PERINUCLEAR (P-ANCA) <1:20 titer (Neg:<1:20)
[2025-10-22] MEDS: ACETAMINOPHEN 650 MG/20.3 ML UDC GT PRN (10:24)
[2025-10-22 12:00] VITALS: BP 140/85; TEMP 99; O2SAT 100
[2025-10-22 12:10] LABS: *SPE A/G RATIO 0.6 (0.7-1.7); *SPE ALBUMIN 2.7 g/dL (2.9-4.4); *SPE ALPHA-1-GLOBULIN 0.5 g/dL (0.0-0.4); *SPE ALPHA-2-GLOBULIN 1.2 g/dL (0.4-1.0); *SPE BETA GLOBULIN 1.1 g/dL (0.7-1.3); *SPE GLOBULIN, TOTAL 4.2 g/dL (2.2-3.9); *SPE M-SPIKE Not Observed g/dL (Not Observed); *SPE PROTEIN TOTAL 6.9 g/dL (6.0-8.5); *SPEGAMMA GLOBULIN 1.4 g/dL (0.4-1.8)
[2025-10-22] MEDS: CITRIC ACID/SODIUM CITRATE (BICITRA)15 ML UDC PO SCH (12:40)
[2025-10-22 16:00] VITALS: BP 150/82; TEMP 99; O2SAT 100
[2025-10-22 20:00] VITALS: BP 155/89; TEMP 98.4; O2SAT 100
[2025-10-23] VITALS (7 sets, daily range): BP systolic 146–165; BP diastolic 78–97; TEMP 98.4–99.4; O2SAT 100
[2025-10-23 08:34] LABS: PLATELET COUNT (AUTO) 251 K/uL (150-450); RED BLOOD CELL COUNT(AUTO) 2.63 MIL/uL (4.0-5.2); RED CELL DISTRIBUTION WIDTH 15.5 % (11.5-15.0); WHITE BLOOD COUNT (AUTO) 10.2 K/uL (4.3-11.0)
[2025-10-23 08:55] LABS: ASPARTATE AMINOTRANSFERASE 19.0 U/L (15-37); CALCIUM, SERUM 9.6 mg/dL (8.5-10.1); PHOSPHORUS 4.3 mg/dL (2.5-4.9); SODIUM SERUM 143.0 mmol/L (136-145); TOTAL PROTEIN, SERUM 6.8 g/dL (6.4-8.2)
[2025-10-23 09:10] LABS: CREATININE 2.7 mg/dL (0.6-1.3)
[2025-10-23 09:13] LABS: UREA NITROGEN, BLOOD 147.0 mg/dL (7-18)
[2025-10-23] MEDS: NEPRO 1,000 ML BOTTLE GT PRN (13:02)
[2025-10-23] MEDS: VANCOMYCIN 1 GM in IV D5W 250ml IV SCH (16:17)
[2025-10-24] VITALS: BP 140/81; TEMP 98.4; O2SAT 100
[2025-10-24 04:00] VITALS: BP 144/77; TEMP 97.7; O2SAT 100
[2025-10-24 07:26] LABS: PLATELET COUNT (AUTO) 244 K/uL (150-450); RED BLOOD CELL COUNT(AUTO) 2.57 MIL/uL (4.0-5.2); RED CELL DISTRIBUTION WIDTH 15.2 % (11.5-15.0); WHITE BLOOD COUNT (AUTO) 9.2 K/uL (4.3-11.0)
[2025-10-24 07:58] LABS: ASPARTATE AMINOTRANSFERASE 22.0 U/L (15-37); CALCIUM, SERUM 9.7 mg/dL (8.5-10.1); CREATININE 2.6 mg/dL (0.6-1.3); PHOSPHORUS 3.8 mg/dL (2.5-4.9); SODIUM SERUM 147.0 mmol/L (136-145); TOTAL PROTEIN, SERUM 6.6 g/dL (6.4-8.2)
[2025-10-24 08:00] VITALS: BP 147/80; TEMP 98.5; O2SAT 99
[2025-10-24 08:00] LABS: UREA NITROGEN, BLOOD 133.0 mg/dL (7-18)
[2025-10-24 12:00] VITALS: BP 146/83; TEMP 98.2; O2SAT 98
[2025-10-24 16:00] VITALS: BP 145/79; TEMP 98.6; O2SAT 100
[2025-10-24 20:00] VITALS: BP 148/79; TEMP 98.4; O2SAT 100
[2025-10-25] VITALS: BP 147/80; TEMP 98.4; O2SAT 100
[2025-10-25 04:00] VITALS: BP 146/76; TEMP 98.6; O2SAT 100
[2025-10-25] MEDS: IV 1/2NS 1000 ML 1,000 ML IV PRN (06:33)
[2025-10-25 08:00] VITALS: BP 146/78; TEMP 98.5; O2SAT 100
[2025-10-25 08:22] LABS: PLATELET COUNT (AUTO) 254 K/uL (150-450); RED BLOOD CELL COUNT(AUTO) 2.48 MIL/uL (4.0-5.2); RED CELL DISTRIBUTION WIDTH 15.2 % (11.5-15.0); WHITE BLOOD COUNT (AUTO) 8.9 K/uL (4.3-11.0)
[2025-10-25 08:51] LABS: CALCIUM, SERUM 9.6 mg/dL (8.5-10.1); CREATININE 2.6 mg/dL (0.6-1.3); SODIUM SERUM 150.0 mmol/L (136-145)
[2025-10-25 08:57] LABS: UREA NITROGEN, BLOOD 125.0 mg/dL (7-18)
[2025-10-25 12:00] VITALS: BP 150/76; TEMP 98.4; O2SAT 100
[2025-10-25] MEDS: NEPRO 1,000 ML BOTTLE GT PRN (15:29)
[2025-10-25 16:00] VITALS: BP 153/83; TEMP 98.8; O2SAT 100
[2025-10-25 20:00] VITALS: BP 136/69; TEMP 99.5; O2SAT 100
[2025-10-25] MEDS: POLYETHYLENE GLYCOL 3350 17 GM POWD.PACK PO SCH (22:26)
[2025-10-26] VITALS: BP 133/68; TEMP 99.5; O2SAT 100
[2025-10-26 04:00] VITALS: BP 147/76; TEMP 99; O2SAT 100
[2025-10-26 07:55] LABS: PLATELET COUNT (AUTO) 258 K/uL (150-450); RED BLOOD CELL COUNT(AUTO) 2.43 MIL/uL (4.0-5.2); RED CELL DISTRIBUTION WIDTH 15.3 % (11.5-15.0); WHITE BLOOD COUNT (AUTO) 13.1 K/uL (4.3-11.0)
[2025-10-26 08:00] VITALS: BP 137/75; TEMP 98.6; O2SAT 100
[2025-10-26 08:22] LABS: CALCIUM, SERUM 10.2 mg/dL (8.5-10.1); CREATININE 2.4 mg/dL (0.6-1.3); PHOSPHORUS 3.5 mg/dL (2.5-4.9); SODIUM SERUM 152.0 mmol/L (136-145)
[2025-10-26 08:32] LABS: UREA NITROGEN, BLOOD 126.0 mg/dL (7-18)
[2025-10-26 12:00] VITALS: BP 136/70; TEMP 98.6; O2SAT 100
[2025-10-26 16:00] VITALS: BP 127/70; TEMP 98.6; O2SAT 100
[2025-10-26 20:00] VITALS: BP 159/75; TEMP 98.5; O2SAT 100
[2025-10-27] VITALS: BP 156/72; TEMP 99.3; O2SAT 100
[2025-10-27 04:00] VITALS: BP 155/76; TEMP 99.1; O2SAT 100
[2025-10-27 07:04] LABS: PLATELET COUNT (AUTO) 259 K/uL (150-450); RED BLOOD CELL COUNT(AUTO) 2.35 MIL/uL (4.0-5.2); RED CELL DISTRIBUTION WIDTH 15.3 % (11.5-15.0); WHITE BLOOD COUNT (AUTO) 10.2 K/uL (4.3-11.0)
[2025-10-27 07:08] LABS: CALCIUM, SERUM 9.9 mg/dL (8.5-10.1); CREATININE 2.3 mg/dL (0.6-1.3); SODIUM SERUM 152.0 mmol/L (136-145)
[2025-10-27 07:14] LABS: UREA NITROGEN, BLOOD 118.0 mg/dL (7-18)
[2025-10-27 08:00] VITALS: BP 131/69; TEMP 98.4; O2SAT 100
[2025-10-27] MEDS: FREE WATER VIA TUBE FEEDING GT SCH (09:45)
[2025-10-27 12:00] VITALS: BP 136/73; TEMP 98.2; O2SAT 100
[2025-10-27 16:00] VITALS: BP 138/79; TEMP 98.9; O2SAT 100
[2025-10-27 20:00] VITALS: BP 139/81; TEMP 98; O2SAT 100
[2025-10-27] MEDS ORDERED: MEROPENEM 1 G in IV NS 0.9% 100 ML IV SCH (21:00)
[2025-10-27] MEDS: POLYETHYLENE GLYCOL 3350 17 GM POWD.PACK PO SCH (21:38)
[2025-10-28] VITALS: BP 139/76; TEMP 98; O2SAT 100
[2025-10-28 04:00] VITALS: BP 137/72; TEMP 97.5; O2SAT 100
[2025-10-28 06:33] LABS: CALCIUM, SERUM 9.6 mg/dL (8.5-10.1); CREATININE 2.2 mg/dL (0.6-1.3); SODIUM SERUM 149.0 mmol/L (136-145)
[2025-10-28 06:55] LABS: PLATELET COUNT (AUTO) 269 K/uL (150-450); RED BLOOD CELL COUNT(AUTO) 2.21 MIL/uL (4.0-5.2); RED CELL DISTRIBUTION WIDTH 15.1 % (11.5-15.0); WHITE BLOOD COUNT (AUTO) 10.2 K/uL (4.3-11.0)
[2025-10-28 07:28] LABS: UREA NITROGEN, BLOOD 113.0 mg/dL (7-18)
[2025-10-28 08:00] VITALS: BP 157/89; TEMP 98.3; O2SAT 100
[2025-10-28 12:00] VITALS: BP 140/79; TEMP 99.5; O2SAT 100
[2025-10-28 12:09] VITALS: BP 140/79
[2025-10-28] MEDS ORDERED: CITR15SO PO (17:07)
== END 2025-10-28 19:20 | DRG 951 ==
LOC: ER 12:38 → TELE-TD 15:59 → TELE1 10-21 09:32
PROVIDERS: ADMIT Nurse Practitioner Acute Care; ATTEND Nurse Practitioner Acute Care
PROC: 5A1955Z Respiratory Ventilation, Greater than 96 Consecutive Hours (ICD-10-PCS; principal; 2025-10-18)
PROC: 30233N1 Transfusion of Nonautologous Red Blood Cells into Peripheral Vein, Percutaneous Approach (ICD-10-PCS; 2025-10-20)
PROC: 0KBN0ZZ Excision of Right Hip Muscle, Open Approach (ICD-10-PCS; 2025-10-22)
PROC: 0KBP0ZZ Excision of Left Hip Muscle, Open Approach (ICD-10-PCS; 2025-10-22)
DX: T83.511A Infection and inflammatory reaction due to indwelling urethral catheter, initial encounter (principal); N17.0 Acute kidney failure with tubular necrosis; A41.9 Sepsis, unspecified organism; E44.0 Moderate protein-calorie malnutrition; L89.154 Pressure ulcer of sacral region, stage 4; Z99.11 Dependence on respirator [ventilator] status; B96.1 Klebsiella pneumoniae [K. pneumoniae] as the cause of diseases classified elsewhere; D63.8 Anemia in other chronic diseases classified elsewhere; E87.0 Hyperosmolality and hypernatremia; I12.0 Hypertensive chronic kidney disease with stage 5 chronic kidney disease or end stage renal disease; N18.5 Chronic kidney disease, stage 5; M46.28 Osteomyelitis of vertebra, sacral and sacrococcygeal region; J18.9 Pneumonia, unspecified organism; J96.10 Chronic respiratory failure, unspecified whether with hypoxia or hypercapnia; N39.0 Urinary tract infection, site not specified; Z93.0 Tracheostomy status; B96.20 Unspecified Escherichia coli [E. coli] as the cause of diseases classified elsewhere; B96.4 Proteus (mirabilis) (morganii) as the cause of diseases classified elsewhere; E11.69 Type 2 diabetes mellitus with other specified complication; I65.29 Occlusion and stenosis of unspecified carotid artery; G40.909 Epilepsy, unspecified, not intractable, without status epilepticus; D68.59 Other primary thrombophilia; Y84.6 Urinary catheterization as the cause of abnormal reaction of the patient, or of later complication, without mention of misadventure at the time of the procedure; Y92.89 Other specified places as the place of occurrence of the external cause; Z86.61 Personal history of infections of the central nervous system; Z87.891 Personal history of nicotine dependence; Z98.890 Other specified postprocedural states; E11.22 Type 2 diabetes mellitus with diabetic chronic kidney disease; E78.5 Hyperlipidemia, unspecified; Z93.1 Gastrostomy status; R13.10 Dysphagia, unspecified; N31.9 Neuromuscular dysfunction of bladder, unspecified; Z79.4 Long term (current) use of insulin; Z79.82 Long term (current) use of aspirin; Z79.51 Long term (current) use of inhaled steroids; Z79.899 Other long term (current) drug therapy; Z16.12 Extended spectrum beta lactamase (ESBL) resistance; D50.9 Iron deficiency anemia, unspecified; E87.1 Hypo-osmolality and hyponatremia; R74.01 Elevation of levels of liver transaminase levels; E87.20 Acidosis, unspecified; E86.9 Volume depletion, unspecified; E88.09 Other disorders of plasma-protein metabolism, not elsewhere classified; I12.9 Hypertensive chronic kidney disease with stage 1 through stage 4 chronic kidney disease, or unspecified chronic kidney disease; I69.398 Other sequelae of cerebral infarction; R79.89 Other specified abnormal findings of blood chemistry; K59.00 Constipation, unspecified; Y95 Nosocomial condition; Z74.01 Bed confinement status; Z87.440 Personal history of urinary (tract) infections; J98.11 Atelectasis; Z86.19 Personal history of other infectious and parasitic diseases
CPT/HCPCS: 31720; 36415; 36600; 71045-TC; 74018; 76770-TC; 80048-TC; 80053-TC; 80076-TC; 80202-TC; 81001; 82550-TC; 82570-TC; 82607-TC; 82728-TC; 82803-TC; 82962-TC; 83520; 83540-TC; 83605-TC; 83735-TC; 83970; 84100-TC; 84155; 84165; 84300-TC; 84702-TC; 84703-TC; 85025-TC; 85027-TC; 85652-TC; 85730-TC; 86225; 86235; 86256; 86317; 86704; 86705; 86803; 86850-TC; 87040-TC; 87081-TC; 87086-TC; 87186-TC; 87340; 94003-TC; 94760-TC; 94762-TC; 94799-TC; 99082-TC; A4223; A4623; A6403; A7526; G0378; J1650; J1815; J1953; J2185; J2543; J3373; J3490; J7030; J7050; J7060; P9016